=== PATIENT | female | born 1985 | race Caucasian/White ===

== ENCOUNTER 2017-01-18 17:43 | Inpatient (IN) | payer BC, MEDICAID, SELFPAY | END 2017-01-21 12:20 | disposition home or self-care (01) | DRG 766 | PROVIDERS: Admitting Provider Obstetrics & Gynecology; Visit Provider Obstetrics & Gynecology | DX: O34.211 Maternal care for low transverse scar from previous cesarean delivery (principal); N85.8 Other specified noninflammatory disorders of uterus; O75.82 Onset (spontaneous) of labor after 37 completed weeks of gestation but before 39 completed weeks gestation, with delivery by (planned) cesarean section; Z3A.38 38 weeks gestation of pregnancy; Z37.0 Single live birth | CPT/HCPCS: 36415; 59025; 81001; 82800; 85014; 85018; 86850; 86900; 86901; G0238; J2405 ==

== ENCOUNTER → 2018-03-19 10:09 | Outpatient (CLI) | payer BC, SELFPAY ==
[2018-03-19 12:47] LABS: HCG,Quantitative 59 mIU/mL
== END ==
PROVIDERS: Visit Provider Obstetrics & Gynecology
DX: Z34.90 Encounter for supervision of normal pregnancy, unspecified, unspecified trimester (principal)
CPT/HCPCS: 36415; 84702; 86850

== ENCOUNTER → 2018-03-22 08:10 | Outpatient (CLI) | payer BC, SELFPAY ==
[2018-03-22 10:19] LABS: HCG,Quantitative 19 mIU/mL
== END ==
PROVIDERS: Visit Provider Obstetrics & Gynecology
DX: Z34.90 Encounter for supervision of normal pregnancy, unspecified, unspecified trimester (principal)
CPT/HCPCS: 36415; 84702

== ENCOUNTER → 2018-03-26 07:44 | Outpatient (CLI) | payer BC, SELFPAY ==
[2018-03-26 12:46] LABS: HCG,Quantitative 2 mIU/mL
== END ==
PROVIDERS: Visit Provider Obstetrics & Gynecology
DX: Z34.90 Encounter for supervision of normal pregnancy, unspecified, unspecified trimester (principal)
CPT/HCPCS: 36415; 84702

== ENCOUNTER → 2018-04-01 09:13 | Outpatient (CLI) | payer BC, SELFPAY ==
[2018-04-01 10:59] LABS: HCG,Quantitative 0 mIU/mL
== END ==
PROVIDERS: Visit Provider Obstetrics & Gynecology
DX: Z34.90 Encounter for supervision of normal pregnancy, unspecified, unspecified trimester (principal)
CPT/HCPCS: 36415; 84702

== ENCOUNTER → 2018-08-28 10:42 | Outpatient (CLI) | payer BC, SELFPAY ==
[2018-08-28 12:14] LABS: Alanine Aminotransferase 51 U/L (12-78); Albumin Level 3.6 gm/dL (3.4-5.0); Alkaline Phosphatase 108 U/L (46-116); Anion Gap 15.4 mEq/L (5-15); Aspartate Amino Transferase 26 U/L (15-37); Bilirubin,Total 0.2 mg/dL (0.2-1.0); Blood Urea Nitrogen 19 mg/dL (7-18); Calcium 9.3 mg/dL (8.5-10.1); Carbon Dioxide 24 mmol/L (21.0-32.0); Chloride 106 mmol/L (98-107); Chol/HDL Ratio 3.5 (1-3.5); Cholesterol 199 mg/dL (140-200); Creatinine,Serum 0.72 mg/dL (0.55-1.02); Estimated Glomerular Filt Rate 94 ml/min (>60); GFR (African American) 114 ML/MIN (>60); Globulin 3.7 gm/dl (1.3-3.2); Glucose 82 mg/dL (74-106); HDL Cholesterol 57 mg/dL (29-89); LDL Cholesterol 122 mg/dL (0-130); Potassium 4.4 mmoL/L (3.5-5.1); Sodium 141 mmol/L (136-145); Total Protein,Serum 7.3 gm/dL (6.4-8.2); Triglycerides 101 mg/dL (30-200); VLDL Cholesterol 20 mg/dL (0-40)
[2018-08-28 12:55] LABS: Hemoglobin A1C 5.2 % (0.0-7.0)
== END ==
PROVIDERS: Visit Provider Nurse Practitioner Family
DX: Z00.00 Encounter for general adult medical examination without abnormal findings (principal); E78.2 Mixed hyperlipidemia
CPT/HCPCS: 36415; 80053; 80061; 83036

== ENCOUNTER → 2019-03-18 09:49 | Outpatient (CLI) | payer BC, SELFPAY ==
[2019-03-18 13:03] LABS: Hemoglobin A1C 5.1 % (0.0-7.0)
[2019-03-18 13:12] LABS: Alanine Aminotransferase 22 U/L (12-78); Albumin Level 3.5 gm/dL (3.4-5.0); Albumin/Globulin Ratio 1.1 (1.1-1.8); Alkaline Phosphatase 132 U/L (46-116); Anion Gap 16.5 mEq/L (5-15); Aspartate Amino Transferase 14 U/L (15-37); Bilirubin,Total 0.3 mg/dL (0.2-1.0); Blood Urea Nitrogen 14 mg/dL (7-18); Calcium 8.8 mg/dL (8.5-10.1); Carbon Dioxide 26 mmol/L (21.0-32.0); Chloride 105 mmol/L (98-107); Chol/HDL Ratio 5.4 (1-3.5); Cholesterol 199 mg/dL (140-200); Creatinine,Serum 0.73 mg/dL (0.55-1.02); Estimated Glomerular Filt Rate 92 ml/min (>60); GFR (African American) 111 ML/MIN (>60); Globulin 3.3 gm/dl (1.3-3.2); Glucose 79 mg/dL (74-106); HDL Cholesterol 37 mg/dL (29-89); LDL Cholesterol 107 mg/dL (0-130); Potassium 4.5 mmoL/L (3.5-5.1); Sodium 143 mmol/L (136-145); Total Protein,Serum 6.8 gm/dL (6.4-8.2); Triglycerides 277 mg/dL (30-200); VLDL Cholesterol 55 mg/dL (0-40)
== END ==
PROVIDERS: PCP Internal Medicine Adolescent Medicine; Visit Provider Nurse Practitioner Family
DX: Z00.00 Encounter for general adult medical examination without abnormal findings (principal); E28.2 Polycystic ovarian syndrome; E78.01 Familial hypercholesterolemia
CPT/HCPCS: 36415; 80053; 80061; 83036

== ENCOUNTER → 2020-03-25 13:04 | Outpatient (CLI) | payer BC, OTHER, SELFPAY ==
[2020-03-25 13:48] LABS: Basophils # 0.1 K/mm3 (0-0.2); Basophils % 0.7 % (0.1-2.0); Eosinophils # 0.1 K/mm3 (0.0-0.4); Eosinophils % 1.3 % (0.1-12.0); Hematocrit 47.3 % (37.0-47.0); Hemoglobin 14.6 g/dL (12.2-16.2); Lymphocytes # 2.5 K/mm3 (0.7-4.5); Lymphocytes % 32.8 % (10-50); Mean Corpuscular Volume 90.3 fl (81-99); Mean Platelet Volume 7.5 fl (7.4-10.4); Monocytes # 0.5 K/mm3 (0.1-1.0); Monocytes % 6.5 % (1.7-9.3); Neutrophils # 4.4 K/mm3 (1.8-7.8); Neutrophils % 58.7 % (37.0-80.0); Platelet Count 282 K/mm3 (142-424); Red Blood Count 5.24 M/mm3 (4.20-5.40); Red Cell Distribution Width 12.9 % (11.5-17.5); White Blood Count 7.5 K/mm3 (4.8-10.8)
[2020-03-25 14:09] LABS: Alanine Aminotransferase 20 U/L (12-78); Albumin Level 4.7 g/dl (3.5-5.0); Albumin/Globulin Ratio 1.6 (1.1-1.8); Alkaline Phosphatase 100 U/L (38-126); Anion Gap 11.2 mEq/L (5-15); Aspartate Amino Transferase 24 U/L (14-36); Bilirubin,Total 0.4 mg/dl (0.2-1.3); Blood Urea Nitrogen 9 mg/dl (7-17); Calcium 9.5 mg/dl (8.4-10.2); Carbon Dioxide 28 mmol/L (22.0-30.0); Chloride 105 mmol/L (98-107); Estimated Glomerular Filt Rate 114 ml/min (>60); GFR (African American) 138 ML/MIN (>60); Glucose 84 mg/dl (74-100); Potassium 4.2 mmoL/L (3.5-5.1); Sodium 140 mmol/L (136-145); Total Protein,Serum 7.7 g/dl (6.3-8.2)
[2020-03-25 14:24] LABS: HCG,Quantitative 153 mIU/ml (0-5.42)
== END ==
PROVIDERS: Visit Provider Nurse Practitioner Family
DX: Z34.90 Encounter for supervision of normal pregnancy, unspecified, unspecified trimester (principal)
CPT/HCPCS: 36415; 80053; 84702; 85025

== ENCOUNTER → 2020-03-30 09:50 | Outpatient (CLI) | payer BC, OTHER, SELFPAY ==
[2020-03-30 11:10] LABS: HCG,Quantitative 227 mIU/ml (0-5.42)
== END ==
PROVIDERS: Visit Provider Nurse Practitioner Family
DX: Z32.01 Encounter for pregnancy test, result positive (principal)
CPT/HCPCS: 36415; 84702

== ENCOUNTER 2020-04-05 09:55 | Emergency (ER) | payer BC, OTHER, SELFPAY ==
[2020-04-05 09:57] VITALS: BP 140/93; PULSE 83; RESP 18; TEMP 36.7; O2SAT 100; BMI 30.4
--- NOTE | 2020-04-05 10:00 | HMH.EDPREG ---
ED Disposition Clinical Impression: Spontaneous Disposition: Home, Self-Care Condition on Discharge: Good Referrals: Gustabo Castillo MD [Primary Care Provider] - 7-14 days Time of Disposition: 11:31 - Critical Care Critical Care Time: No Attestation: On , the high probability of a clinically significant, sudden or life threatening deterioration of the following system(s) required my full and direct attention, intervention and personal management. The time I documented below is in addition to time spent performing reported procedures but includes the following listed in this critical care notation. Medical Decision Making - Medical Records Medical records reviewed: Yes: I reviewed the patient's medical records. - Johnathan Inquiry Pt receiving controlled substance: No Vital Signs: 04/05/20 09:57 04/05/20 10:49 Temperature 98.0 F Temperature Source Oral Pulse Rate [Right Radial] 83 71 Respiratory Rate 18 Blood Pressure [Right Arm] 140/93 H 130/72 Blood Pressure Mean [Right Arm] 108 91 Blood Pressure Source [Right Arm] Automatic Cuff Automatic Cuff Blood Pressure Position [Right Arm] Sitting Sitting 02 Sat by Pulse Oximetry 100 100 Oxygen Delivery Method Room Air Room Air - Lab Data Lab Results 04/05/20 10:05: Urine Color Yellow, Urine Appearance Clear, Urine pH 6.5, Ur Specific [place] 1.025, Urine Protein Trace, Urine Glucose (UA) Negative, Urine Ketones Negative, Urine Blood 3+, Urine Nitrate Negative, Urine Bilirubin Negative, Urine Urobilinogen 1.0, Ur Leukocyte Esterase Negative, Urine RBC 10-20, Urine WBC 3-5, Ur Squamous Epith Cells 3-5 04/05/20 10:05: Urine HCG, Qual Positive Orders (Tests/Meds): ORDERS Category Date Time Status US transvaginal Stat Exams 04/05/20 10:07 Taken HCG,Quantitative Stat Lab 04/05/20 10:19 Received - US Data US Images: Pelvis ED US Reviewed: Yes: I have reviewed the patient's US results Findings Narrative: Thin uterine lining, 4 mm. No evidence of intrauterine . Normal ovaries with good blood flow. Medical Decision Narrative: 35yo F evaluated for inevitable . Urine is clear for any signs of urinary tract infection. Urine test is still positive with quantitative value pending. Patient was sent for ultrasound that revealed no sign of intrauterine with a thin lining. These were also discussed with patient at bedside. Patient has OB follow-up with Dr. Pollock on the . 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 Patient voiced understanding agree with the plan. Patient has no record of being administered RhoGam with her threatened [facility]. Will provide treatment at this time. HPI - General Stated complaint: bleeding, about 7 weeks Time Seen by Provider: 04/05/20 10:00 Mode of Arrival: Ambulatory Source of Information: Patient Limitations: No Limitations - History of Present Illness HPI Narrative: 35yo F presents to the emergency department for follow-up after being told she was having an inevitable spontaneous at [facility] on Sunday. Patient denies any fever, shortness of breath, chest pain. Notes she has had intermittent vaginal bleeding with low back pain. MD Complaint: vaginal bleeding - Related Data Home Medications Medication Instructions Recorded Confirmed metformin 500 mg 24 hr 1,000 mg PO BID 03/13/17 04/05/20 tablet,extended release Allergies Allergy/AdvReac Type Severity Reaction Status Date / Time morphine [MORPHINE] Allergy Mild ITCHING Unverified 03/19/18 09:16 [facility] History - Hepatitis A Screen Attestation statement:: This patient has been screened for Hepatitis A risk factors. Comment: HYPERTENSION IN . PCOS Other Surgeries: Yes: Amputation: No Fractures: No Comment: T&D--2003. PRIMARY C/S--2005. R C/S--2008. LAP. CHOLY--2008.
[2020-04-05 10:07] VITALS: BMI 30.4
--- NOTE | 2020-04-05 10:07 | US_ITS ---
PROCEDURE: US TRANSVAGINAL CLINICAL INDICATION: vaginal bleeding, COMPARISON: US PTV US PELVIS-TRANSVAGINAL ONLY from 06/10/2013 US PRESG US PREG > 14 WEEKS SNGL/GEST from 08/20/2016 FINDINGS: UTERUS: 7.5 x 4.9cmx 6.4cm with a combined endometrial thickness of 5.2mm. Uterine volume 24 cc. LEFT OVARY: [id number] with a volume of 7.9ml. RIGHT OVARY: 3cmx 5vuq3cl with a volume of 7ml. There is no viable intrauterine . Ovarian size and appearance is normal bilaterally. Minimal fluid may be present in the endometrial canal. IMPRESSION: No viable intrauterine identified. Dictated by: Sarah Garcia MD 04/06/2020 13:29 Sarah Garcia MD in [place] 04/06/2020 13:29
[2020-04-05 10:11] LABS: Microscopic, Urine URINE MICROSCOPIC (MICROSCOPIC)
[2020-04-05 10:13] LABS: Appearance,Urine CLEAR (Clear); Bilirubin,Urine Negative (Negative); Blood, Urine 3+ (Negative); Color,Urine YELLOW (Yellow); Glucose,Urine (UA) Negative (Negative); Ketones,Urine Negative (Negative); Leukocyte Esterase,Urine Negative (Negative); Nitrate,Urine Negative (Negative); PH,Urine 6.5 (5.0-8.5); Protein,Urine TRACE (Negative); Specific Gravity, Urine 1.025 (1.005-1.030); Urine Pregnancy, HCG Qual. Positive (Negative)
--- NOTE | 2020-04-05 10:22 | PC.NURSE ---
PT GOING TO US
[2020-04-05 10:49] VITALS: BP 130/72; PULSE 71; O2SAT 100
--- NOTE | 2020-04-05 11:37 | PC.NURSE ---
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 Michelle who is bench precision assembler for OB
[2020-04-05 11:42] LABS: HCG,Quantitative 239 mIU/ml (0-5.42)
--- NOTE | 2020-04-05 11:43 | PC.NURSE ---
LUDIN TOLLIVER speaking with Dr. Michelle
[2020-04-05 12:04] VITALS: BP 134/68; PULSE 54; RESP 17; TEMP 36.7; O2SAT 100
== END 2020-04-05 12:07 | disposition home or self-care (01) ==
PROVIDERS: Emergency Provider Family Medicine; PCP Internal Medicine Adolescent Medicine
DX: O03.9 Complete or unspecified spontaneous abortion without complication (principal); E11.9 Type 2 diabetes mellitus without complications; Z79.84 Long term (current) use of oral hypoglycemic drugs
CPT/HCPCS: 76830; 81001; 81025; 84702; 99283

== ENCOUNTER → 2020-04-20 09:24 | Outpatient (CLI) | payer BC, OTHER, SELFPAY ==
[2020-04-20 11:46] LABS: HCG,Quantitative 92 mIU/ml (0-5.42)
== END ==
PROVIDERS: Visit Provider Obstetrics & Gynecology
DX: O03.9 Complete or unspecified spontaneous abortion without complication (principal)
CPT/HCPCS: 36415; 84702

== ENCOUNTER → 2020-11-19 12:46 | Outpatient (CLI) | payer BC, OTHER, SELFPAY ==
--- NOTE | 2020-11-19 12:50 | US_ITS ---
PROCEDURE: US TRANSVAGINAL CLINICAL INDICATION: DYSPAREUNIA IN FEMALE,PELVIC PAIN COMPARISON: US US TRANSVAGINAL from 04/05/2020 FINDINGS: UTERUS: 9cm x 5cmx 5cm with a combined endometrial thickness of 8mm LEFT OVARY: 0gyk2hqn6.2cm with a volume of 13.6ml. 18 x 13 mm left ovarian follicle RIGHT OVARY: [id number] with a volume of 6.8ml. No cul-de-sac fluid IMPRESSION: Unremarkable pelvic ultrasound Dictated by: Silviano Morse MD 11/19/2020 15:39 Silviano Morse MD in [place] 11/19/2020 15:39
== END ==
PROVIDERS: PCP Internal Medicine Adolescent Medicine; Visit Provider Nurse Practitioner Family
DX: R10.2 Pelvic and perineal pain (principal); N94.10 Unspecified dyspareunia
CPT/HCPCS: 76830

== ENCOUNTER → 2022-06-07 11:48 | Outpatient (CLI) | payer OTHER, SELFPAY ==
[2022-06-08 11:51] LABS: Progesterone 1.2 ng/mL (.)
== END ==
PROVIDERS: PCP Internal Medicine Adolescent Medicine; Visit Provider Obstetrics & Gynecology
DX: Z01.419 Encounter for gynecological examination (general) (routine) without abnormal findings (principal); N96 Recurrent pregnancy loss; E28.2 Polycystic ovarian syndrome; Z31.41 Encounter for fertility testing
CPT/HCPCS: 36415; 84144

== ENCOUNTER → 2022-07-10 08:25 | Outpatient (CLI) | payer OTHER, SELFPAY ==
[2022-07-11 12:23] LABS: Progesterone 10.6 ng/mL (.)
== END ==
PROVIDERS: PCP Internal Medicine Adolescent Medicine; Visit Provider Obstetrics & Gynecology
DX: N96 Recurrent pregnancy loss (principal); Z31.41 Encounter for fertility testing
CPT/HCPCS: 36415; 84144

== ENCOUNTER → 2022-08-24 08:02 | Outpatient (CLI) | payer OTHER, SELFPAY ==
[2022-08-24 09:01] LABS: HCG,Quantitative < 2 mIU/ml (0-5.42)
== END ==
PROVIDERS: PCP Internal Medicine Adolescent Medicine; Visit Provider Obstetrics & Gynecology
DX: N97.0 Female infertility associated with anovulation (principal)
CPT/HCPCS: 36415; 84702

== ENCOUNTER → 2022-10-09 08:14 | Outpatient (CLI) | payer OTHER, SELFPAY ==
[2022-10-09 10:47] LABS: HCG,Quantitative 13840 mIU/ml (0-5.42)
[2022-10-10 09:30] LABS: Progesterone 8.9 ng/mL (.)
== END ==
PROVIDERS: PCP Internal Medicine Adolescent Medicine; Visit Provider Obstetrics & Gynecology
DX: N92.6 Irregular menstruation, unspecified (principal); Z32.00 Encounter for pregnancy test, result unknown
CPT/HCPCS: 36415; 84144; 84702

== ENCOUNTER → 2022-10-13 13:54 | Outpatient (CLI) | payer OTHER, SELFPAY ==
[2022-10-13 14:26] LABS: Basophils % 0.4 % (0.1-2.0); Eosinophils # 0.2 K/mm3 (0.0-0.4); Eosinophils % 1.9 % (0.1-12.0); Hematocrit 42.8 % (37.0-47.0); Hemoglobin 14.3 g/dL (12.2-16.2); Lymphocytes # 2.8 K/mm3 (0.7-4.5); Lymphocytes % 28.1 % (10-50); Mean Corpuscular HGB Conc 33.4 g/dL (31.8-35.4); Mean Corpuscular Hemoglobin 29.7 pg (27.0-31.2); Mean Corpuscular Volume 88.8 fl (81-99); Mean Platelet Volume 7.4 fl (7.4-10.4); Monocytes # 0.6 K/mm3 (0.1-1.0); Monocytes % 5.6 % (1.7-9.3); Neutrophils # 6.4 K/mm3 (1.8-7.8); Neutrophils % 63.9 % (37.0-80.0); Platelet Count 239 K/mm3 (142-424); Red Blood Count 4.82 M/mm3 (4.20-5.40); Red Cell Distribution Width 13.8 % (11.5-17.5)
[2022-10-15 09:12] LABS: Rapid Plasma Reagin Ab Titer Non Reactive (NonRea<1:1)
[2022-10-15 13:25] LABS: HIV Screen 4th Generation wRfx Non Reactive (Non Reactive)
[2022-10-16 21:27] LABS: Neisseria gonorrhoeae, NAA Negative (Negative)
[2022-10-19 11:08] LABS: Hepatitis B Surface Antigen Negative; Hepatitis C Antibody Non Reactive
[2022-10-19 11:09] LABS: Rubella Antibodies, IgG 1.75
== END ==
PROVIDERS: PCP Internal Medicine Adolescent Medicine; Visit Provider Obstetrics & Gynecology
DX: Z34.91 Encounter for supervision of normal pregnancy, unspecified, first trimester (principal); Z3A.01 Less than 8 weeks gestation of pregnancy
CPT/HCPCS: 36415; 85025; 86593; 86703; 86762; 86850; 87086; 87340; 87380; 87491; 87591; G0432

== ENCOUNTER 2022-12-19 14:45 | Emergency (ER) | payer OTHER, SELFPAY ==
[2022-12-19 14:47] VITALS: BP 158/96; PULSE 88; RESP 18; TEMP 36.7; O2SAT 100; BMI 34.5
--- NOTE | 2022-12-19 15:07 | PC.NURSE ---
DR CLARK AT BEDSIDE
[2022-12-19 15:18] VITALS: BP 148/98; PULSE 84; RESP 17; TEMP 36.7; O2SAT 98
--- NOTE | 2022-12-19 15:27 | HMH.EDGENADL ---
Discharge Plan Disposition Patient Disposition: Home, Self-Care Prescriptions Prescriptions: No Action DHA 200 mg capsule 200 mg PO DAILY Qty: 30 6RF metformin 500 mg tablet,ER everardo.retention 24 hr 1,000 mg PO BID pyridoxine (vitamin B6) 25 mg tablet 25 mg PO TID Qty: 90 0RF Unisom (doxylamine) 25 mg tablet 25 mg PO HS PRN (Reason: nausea and vomiting) Qty: 60 2RF aspirin 81 mg capsule 81 mg PO DAILY Referrals Follow up/Referrals: Gustabo Castillo MD [Primary Care Provider] - See instructions Activity Restrictions/Add. Instructions Additional Instructions/Restrictions: Take Tylenol and Benadryl as discussed return with any worsening abdominal pain or musculoskeletal pain as discussed as well. Clinical Impressions Clinical Impression: Fall, Ankle sprain, Contusion of elbow, left, Left shoulder strain, Lumbosacral strain, Second trimester Stand Alone Forms Stand Alone Forms: Work/School Release Discharge ED Provider: Ashley Brand General Adult HPI General Chief complaint: Fall Stated complaint: 16 weeks ,AO12/19,tightness in pelvic area Time Seen by Provider: 12/19/22 15:03 Mode of Arrival: Ambulatory Limitations: No Limitations Description of Symptoms (Recalled from ER Triage Doc. by RN): PT APPROX 16 WEEKS . FALL AT WORK C/O RIGHT ANKLE AND KNEE PAIN. PAIN TO LEFT ELBOW AND BILATERAL GROIN PAIN. DID NOT LAND ON ABDOMEN History of Present Illness HPI narrative: Patient is a 37-year-old female G9, P3 a 5 at 16 weeks gestational age presented after a fall. States she was walking downstairs and fell down 1-2 stairs twisting her right ankle landing onto her left elbow having some left elbow shoulder bilateral hip pain and lower back pain not in the midline. She denies any lower extremity weakness she denies any significant swelling in any of the locations of pain no soft tissue abnormalities or deformities. No abdominal pain no vaginal bleeding loss of fluid contractions etc. Related Data Home Medications Medication Instructions Recorded Confirmed metformin 500 mg 24 hr 1,000 mg PO BID pcos 03/13/17 12/12/22 tablet,extended release aspirin 81 mg capsule 81 mg PO DAILY 12/12/22 12/12/22 Previous Rx's Medication Instructions Recorded docosahexaenoic acid 200 mg 200 mg PO DAILY #30 caps 06/19/22 capsule ( DHA) doxylamine succinate 25 mg tablet 25 mg PO HS PRN nausea and 10/13/22 (Unisom (doxylamine)) vomiting #60 tabs pyridoxine (vitamin B6) 25 mg 25 mg PO TID #90 tabs 10/13/22 tablet Allergies Allergy/AdvReac Type Severity Reaction Status Date / Time morphine [MORPHINE] Allergy Mild ITCHING Verified 12/12/22 08:42 [facility] Disclaimer: The information contained in this section may have been updated after the patient was seen, as this information can be updated by other users. Medical History Hyperlipemia PCOS (polycystic ovarian syndrome) Vitamin D deficiency Surgical History History of loop electrical excision procedure (LEEP) History of placement of ear tubes History of tonsillectomy and adenoidectomy Hx of section x3 Hx of cholecystectomy Family History Other Diabetes Social History Smoking Status: Former smoker tobacco type: cigarettes packs per day: 0 alcohol intake: never counseling provided: none substance use type: denies use current occupational status: employed Travel in the last 8 weeks: None ROS Obtained: Yes All systems reviewed & no additional complaints except as documented Physical Exam General General appearance: alert Respiratory Respiratory exam: Present normal lung sounds bilaterally Cardiovascular Cardiovascular exam: Present regular rate
== END 2022-12-19 15:26 | disposition home or self-care (01) ==
PROVIDERS: Emergency Provider Emergency Medicine; PCP Internal Medicine Adolescent Medicine
DX: O26.892 Other specified pregnancy related conditions, second trimester (principal); S93.401A Sprain of unspecified ligament of right ankle, initial encounter; S50.02XA Contusion of left elbow, initial encounter; S46.912A Strain of unspecified muscle, fascia and tendon at shoulder and upper arm level, left arm, initial encounter; S39.012A Strain of muscle, fascia and tendon of lower back, initial encounter; Z3A.16 16 weeks gestation of pregnancy; W10.8XXA Fall (on) (from) other stairs and steps, initial encounter
CPT/HCPCS: 99284

== ENCOUNTER → 2023-01-10 13:52 | Outpatient (CLI) | payer OTHER, SELFPAY ==
--- NOTE | 2023-01-10 13:52 | US_ITS ---
PROCEDURE: US OB /MATERNAL DETAIL CLINICAL INDICATION: 20 week anatomy scan COMPARISON: No exams were available for comparison FINDINGS: Transabdominal sonographic images of the pelvis were obtained. From her established due date she is 19 weeks 2 days. Single viable intrauterine gestation. Cephalic position. Placenta: Posteriorplacenta grade 1. There is an average amount of fluid. MVP 3.2 cm. The cervix appears satisfactory. Closed and measuring 3.7 cm in length. Complete survey performed and was unremarkable on the submitted images as in PACS. No discrete anomalies identified on survey imaging by technologist. Active fetus. Three-vessel cord with satisfactory umbilical cord insertion. 4- chamber heart noted. Situs, aortic arch, LVOT, RVOT, three-vessel view appear normal. Survey of brain & ventricles Unremarkable. Cerebellum, thalamus, choroid plexus, cisterna magna appear normal. Face and neck survey unremarkable. Profile, nasion, lips and nose appeared normal. Diaphragm and chest views unremarkable. Abdomen: Both kidneys noted and unremarkable. Stomach and bladder noted and satisfactory. Spine: Survey of the spine satisfactory with no anomalies identified nor imaged. Cervical, thoracic, lower spine appear normal. Both arms and legs noted. Amniotic Fluid: Adequate. Measurements: Average ultrasound age 19weeks 2days. Estimated due date by ultrasound age 0406/04/2023. Estimated weight 278g BPD = 19weeks 2days HC = 19weeks AC = 19weeks 1day FL = 19weeks 3days Growth Percentile= 39 Heart Rate = 139bpm Cerebellum = 19weeks 2days HC/AC is 1.19 FL/BPD is 0.69 FL/AC is 0.22 IMPRESSION: 1. Viable fetus in the cephalic presentation with a posterior placenta grade 1. 2. The fluid is within normal limits. MVP 3.2 cm. 3. Anatomical scan appears normal. 4. biometry is consistent with the dates. Dictated by: Kris Michelle MD 01/12/2023 11:10 Kris Michelle MD in [place] 01/12/2023 11:10
== END ==
PROVIDERS: PCP Internal Medicine Adolescent Medicine; Visit Provider Obstetrics & Gynecology
DX: Z34.92 Encounter for supervision of normal pregnancy, unspecified, second trimester (principal); Z3A.20 20 weeks gestation of pregnancy
CPT/HCPCS: 76811

== ENCOUNTER 2023-03-06 11:49 | Outpatient (CLI) | payer OTHER, SELFPAY ==
[2023-03-06 12:08] LABS: Basophils % 0.3 % (0.1-2.0); Eosinophils # 0.1 K/mm3 (0.0-0.4); Eosinophils % 1.4 % (0.1-12.0); Hematocrit 43.4 % (37.0-47.0); Hemoglobin 13.8 g/dL (12.2-16.2); Lymphocytes % 19.6 % (10-50); Mean Corpuscular HGB Conc 31.8 g/dL (31.8-35.4); Mean Corpuscular Hemoglobin 28.2 pg (27.0-31.2); Mean Corpuscular Volume 88.9 fl (81-99); Mean Platelet Volume 7.1 fl (7.4-10.4); Monocytes # 0.5 K/mm3 (0.1-1.0); Monocytes % 5.2 % (1.7-9.3); Neutrophils # 7.3 K/mm3 (1.8-7.8); Neutrophils % 73.5 % (37.0-80.0); Platelet Count 227 K/mm3 (142-424); Red Blood Count 4.88 M/mm3 (4.20-5.40); Red Cell Distribution Width 13.8 % (11.5-17.5); White Blood Count 9.9 K/mm3 (4.8-10.8)
[2023-03-06 12:19] LABS: Glucose,Fasting 80 mg/dl (74-100)
[2023-03-06 13:44] LABS: Glucose 1 Hour 184 mg/dL (74-100)
== END 2023-03-06 23:59 ==
PROVIDERS: PCP Internal Medicine Adolescent Medicine; Visit Provider Obstetrics & Gynecology
DX: Z34.92 Encounter for supervision of normal pregnancy, unspecified, second trimester (principal); Z3A.27 27 weeks gestation of pregnancy
CPT/HCPCS: 36415; 82951; 85025

== ENCOUNTER 2023-03-07 15:42 | Outpatient (CLI) | payer OTHER, SELFPAY ==
[2023-03-07 16:53] VITALS: BMI 35.5
[2023-03-07 16:57] LABS: Microscopic, Urine URINE MICROSCOPIC (MICROSCOPIC)
[2023-03-07 17:02] LABS: Appearance,Urine CLEAR (Clear); Bilirubin,Urine Negative (Negative); Blood, Urine Negative (Negative); Color,Urine YELLOW (Yellow); Glucose,Urine (UA) Negative (Negative); Ketones,Urine 2+ (Negative); Leukocyte Esterase,Urine Negative (Negative); Nitrate,Urine Negative (Negative); Protein,Urine Negative (Negative); Specific Gravity, Urine 1.015 (1.005-1.030); Urobilinogen,Urine 0.2 EU/dl (0.2)
[2023-03-07 17:04] LABS: Basophils # 0.1 K/mm3 (0-0.2); Basophils % 0.6 % (0.1-2.0); Eosinophils # 0.2 K/mm3 (0.0-0.4); Eosinophils % 1.5 % (0.1-12.0); Hematocrit 38.9 % (37.0-47.0); Hemoglobin 13.3 g/dL (12.2-16.2); Lymphocytes # 2.1 K/mm3 (0.7-4.5); Lymphocytes % 21.8 % (10-50); Mean Corpuscular HGB Conc 34.2 g/dL (31.8-35.4); Mean Corpuscular Volume 87.7 fl (81-99); Mean Platelet Volume 8.8 fl (7.4-10.4); Monocytes # 0.7 K/mm3 (0.1-1.0); Monocytes % 6.7 % (1.7-9.3); Neutrophils # 6.8 K/mm3 (1.8-7.8); Neutrophils % 69.5 % (37.0-80.0); Platelet Count 248 K/mm3 (142-424); Red Blood Count 4.43 M/mm3 (4.20-5.40); Red Cell Distribution Width 13.9 % (11.5-17.5); White Blood Count 9.7 K/mm3 (4.8-10.8)
[2023-03-07 17:09] LABS: Alanine Aminotransferase 25 U/L (12-78); Anion Gap 11.1 mEq/L (5-15); Aspartate Amino Transferase 58 U/L (14-36); Blood Urea Nitrogen 8 mg/dl (7-17); Carbon Dioxide 19 mmol/L (22.0-30.0); Chloride 108 mmol/L (98-107); Creatinine Clearance Estimated 251 mL/min (50-200); Estimated Glomerular Filt Rate 180 ml/min (>60); GFR (African American) 217 ML/MIN (>60); Glucose 83 mg/dl (74-100); Potassium 5.1 mmoL/L (3.5-5.1); Sodium 133 mmol/L (136-145); Uric Acid 3.5 mg/dl (2.5-6.2)
[2023-03-07 17:13] LABS: Activated Partial Thrombo Time 26.9 seconds (22.8-30.6); Fibrinogen 530 mg/dL (229.9-363.5); INR 0.95 (0.9-1.1); Prothrombin Time 10.3 seconds (10.1-12.5)
[2023-03-07 17:17] LABS: Amphetamine/Metha Screen,Urine Negative ng/ml (<1000); Benzodiazepines Screen,Urine Negative ng/ml (<200)
[2023-03-07 17:18] LABS: Barbiturates Screen,Urine Negative ng/ml (<200); Cannabinoid Screen,Urine Negative ng/ml (<50)
[2023-03-07 17:19] LABS: Cocaine Screen,Urine Negative ng/ml (<300)
[2023-03-07 17:20] LABS: Methadone Screen,Urine Negative ng/ml (<300); Opiate Screen,Urine Negative ng/ml (<300)
[2023-03-07 17:21] LABS: Phencyclidine Screen,Urine Negative ng/ml (<25)
[2023-03-07 17:23] VITALS: BP 148/98; PULSE 99; RESP 19; TEMP 36.8; O2SAT 98; BMI 35.5
[2023-03-07 17:33] LABS: Bacteria,Urine Trace /lpf
[2023-03-07] MEDS: NIFEdipine XL 30MG TABLET 30 MG PO (17:36)
== END 2023-03-07 18:08 | disposition home or self-care (01) ==
LOC: OBOUT 15:44 → OB 15:44
PROVIDERS: PCP Internal Medicine Adolescent Medicine; Referring Provider Obstetrics & Gynecology; Visit Provider Nurse Practitioner Obstetrics & Gynecology
DX: O26.892 Other specified pregnancy related conditions, second trimester (principal); Z3A.27 27 weeks gestation of pregnancy; R51.9 Headache, unspecified; H53.8 Other visual disturbances; R42 Dizziness and giddiness
CPT/HCPCS: 59025; 80048; 80307; 81001; 84450; 84460; 84550; 85025; 85384; 85610; 85730; G0463

== ENCOUNTER 2023-03-09 09:18 | Outpatient (CLI) | payer OTHER, SELFPAY ==
[2023-03-09 10:10] LABS: Collection Time,Urine 24 hours; Patient Height,Urine 59 inches; Patient Weight,Urine 182 lbs; Total Volume,Urine 1175 mL (600-1600)
[2023-03-09 10:11] LABS: Glucose,Fasting 91 mg/dl (74-100)
[2023-03-09 10:18] LABS: Chloride 108 mmol/L (98-107); Potassium 3.9 mmoL/L (3.5-5.1); Sodium 135 mmol/L (136-145)
[2023-03-09 10:21] LABS: Alanine Aminotransferase 20 U/L (12-78); Albumin Level 3.2 g/dl (3.5-5.0); Albumin/Globulin Ratio 1.2 (1.1-1.8); Alkaline Phosphatase 108 U/L (38-126); Anion Gap 9.9 mEq/L (5-15); Aspartate Amino Transferase 26 U/L (14-36); Bilirubin,Total 0.3 mg/dl (0.2-1.3); Blood Urea Nitrogen 8 mg/dl (7-17); Carbon Dioxide 21 mmol/L (22.0-30.0); Estimated Glomerular Filt Rate 180 ml/min (>60); GFR (African American) 217 ML/MIN (>60); Globulin 2.7 g/dL (1.3-3.2); Total Protein,Serum 5.9 g/dl (6.3-8.2)
[2023-03-09 10:22] LABS: Calcium 8.7 mg/dl (8.4-10.2); Glucose 87 mg/dl (74-100)
[2023-03-09 10:33] LABS: Creatinine 24 Hour,Urine 1105 mg/24hr (630-2500); Creatinine Clearance Urine 187.9 mL/min (25-115); Creatinine,Urine Random 94 mg/dL (Not Estab.); Total Protein 24 Hour,Urine 71 mg/24 hr (40-90)
[2023-03-09 10:43] LABS: Uric Acid 2.9 mg/dl (2.5-6.2)
[2023-03-09 11:07] LABS: Glucose 1 Hour 155 mg/dL (74-100)
[2023-03-09 12:30] LABS: Glucose 2 Hour 132 mg/dL (74-100)
[2023-03-09 13:03] LABS: Glucose 3 Hour 86 mg/dL (74-100)
== END 2023-03-09 23:59 ==
LOC: LAB 09:18
PROVIDERS: PCP Internal Medicine Adolescent Medicine; Visit Provider Obstetrics & Gynecology
DX: Z3A.27 27 weeks gestation of pregnancy; O13.2 Gestational [pregnancy-induced] hypertension without significant proteinuria, second trimester
CPT/HCPCS: 36415; 80053; 82575; 82951; 84155; 84550

== ENCOUNTER 2023-03-12 14:23 | Outpatient (CLI) | payer OTHER, SELFPAY ==
--- NOTE | 2023-03-12 14:46 | US_ITS ---
PROCEDURE: US OB BIOPHYSICAL PROFILE CLINICAL INDICATION: Gest Hypertenton/LGA COMPARISON: US US OB /MATERNAL DETAIL from 01/10/2023 FINDINGS: Transabdominal sonographic images of the uterus were obtained. From her established due date she is 28weeks 0 days. The following parameters are obtained: Viable Fetus in the cephalic presentation with anterior placenta grade 1. Average ultrasound age is 28weeks 1day Estimated weight 1,165g The cervix measures 3.5 cm. Measurements: heart Rate = 149bpm BPD = 27weeks 5days HC = 28weeks 2days AC = 28weeks 3days FL = 28weeks 2days HC/AC is 1.1 FL/BPD is 0.77 FL/AC is 0.22 39 percentile Amniotic fluid index: 10.72cm, MVP 4.6 cm Qualitative AFV:2 Breathing movements: 2 Gross Body Movements: 2 Tone: 2 Biophysical profile score: 8 No obvious anomalies evident.Kidneys, profile, nasion, bladder, diaphragm, stomach, four-chamber heart, three-vessel cord appear normal. IMPRESSION: 1. Viable fetus in the cephalic presentation with a posterior placenta grade 1. 2. The fluid is within normal limits with an amniotic fluid index of 10.72 cm, MVP 4.6 cm. 3. Biophysical profile is 8/8 with good breathing movement and movement seen. 4. There has been good interval growth with the fetus currently 39th percentile. Dictated by: Kris Michelle MD 03/12/2023 19:32 Kris Michelle MD in [place] 03/12/2023 19:32
== END 2023-03-12 23:59 ==
LOC: RAD 14:23
PROVIDERS: PCP Internal Medicine Adolescent Medicine; Visit Provider Obstetrics & Gynecology
DX: O13.2 Gestational [pregnancy-induced] hypertension without significant proteinuria, second trimester (principal); O36.62X0 Maternal care for excessive fetal growth, second trimester, not applicable or unspecified
CPT/HCPCS: 76816; 76819

== ENCOUNTER 2023-03-15 14:55 | Outpatient (CLI) | payer OTHER, SELFPAY ==
[2023-03-15 15:13] LABS: Basophils # 0.1 K/mm3 (0-0.2); Basophils % 0.5 % (0.1-2.0); Eosinophils # 0.2 K/mm3 (0.0-0.4); Eosinophils % 1.5 % (0.1-12.0); Hematocrit 33.5 % (37.0-47.0); Lymphocytes # 1.9 K/mm3 (0.7-4.5); Lymphocytes % 18.3 % (10-50); Mean Corpuscular HGB Conc 38.7 g/dL (31.8-35.4); Mean Corpuscular Hemoglobin 33.5 pg (27.0-31.2); Mean Corpuscular Volume 86.6 fl (81-99); Mean Platelet Volume 8.4 fl (7.4-10.4); Monocytes # 0.8 K/mm3 (0.1-1.0); Monocytes % 7.3 % (1.7-9.3); Neutrophils # 7.6 K/mm3 (1.8-7.8); Neutrophils % 72.5 % (37.0-80.0); Platelet Count 191 K/mm3 (142-424); Red Blood Count 3.87 M/mm3 (4.20-5.40); Red Cell Distribution Width 13.9 % (11.5-17.5); White Blood Count 10.5 K/mm3 (4.8-10.8)
[2023-03-15 15:15] LABS: Creatinine,Urine Random 45 mg/dL (Not Estab.)
[2023-03-15 16:22] LABS: Chloride 105 mmol/L (98-107); Sodium 135 mmol/L (136-145)
[2023-03-15 16:23] LABS: Potassium 3.8 mmoL/L (3.5-5.1)
[2023-03-15 16:25] LABS: Alanine Aminotransferase 18 U/L (12-78); Alkaline Phosphatase 122 U/L (38-126); Anion Gap 10.8 mEq/L (5-15); Aspartate Amino Transferase 24 U/L (14-36); Bilirubin,Total 0.3 mg/dl (0.2-1.3); Blood Urea Nitrogen 8 mg/dl (7-17); Carbon Dioxide 23 mmol/L (22.0-30.0); Estimated Glomerular Filt Rate 139 ml/min (>60); GFR (African American) 168 ML/MIN (>60)
[2023-03-15 16:26] LABS: Albumin Level 3.3 g/dl (3.5-5.0); Albumin/Globulin Ratio 1.2 (1.1-1.8); Calcium 8.5 mg/dl (8.4-10.2); Globulin 2.7 g/dL (1.3-3.2); Glucose 78 mg/dl (74-100)
== END 2023-03-15 23:59 ==
LOC: LAB 14:56
PROVIDERS: PCP Internal Medicine Adolescent Medicine; Visit Provider Obstetrics & Gynecology
DX: O13.3 Gestational [pregnancy-induced] hypertension without significant proteinuria, third trimester (principal); Z3A.28 28 weeks gestation of pregnancy
CPT/HCPCS: 36415; 80053; 82570; 84155; 85025

== ENCOUNTER 2023-03-19 12:42 | Outpatient (CLI) | payer OTHER, SELFPAY ==
--- NOTE | 2023-03-19 12:42 | US_ITS ---
PROCEDURE: US OB BIOPHYSICAL PROFILE CLINICAL INDICATION: lga/gestational hypertension COMPARISON: US US OB BIOPHYSICAL PROFILE from 03/12/2023 FINDINGS: Transabdominal sonographic images of the uterus were obtained. From her established due date she is 29weeks 0 days. The following parameters are obtained: Viable Fetus in the cephalic presentation with a posterior placenta grade 1. Average ultrasound age is 29weeks 2days Estimated weight 1,337g Cervix measures 3.4 cm Measurements: heart Rate = 147bpm BPD = 28weeks 6days HC = 29weeks 3days AC = 29weeks 2days FL = 29weeks 1day HC/AC is 1.08 FL/BPD is 0.77 FL/AC is 0.22 41 percentile Amniotic fluid index: 10.44cm, MVP 4.0 cm. Qualitative AFV:2 Breathing movements: 2 Gross Body Movements: 2 Tone: 2 Biophysical profile score: 8 No obvious anomalies evident.Kidneys, four-chamber view, bladder, stomach, profile, nasion, three-vessel cord appear normal. IMPRESSION: 1. Viable fetus in the cephalic presentation with a posterior placenta grade 1. 2. The fluid is within normal limits with an amniotic fluid index of 10.44 cm, MVP 4.0 cm. 3. Biophysical profile is 8/8 with good breathing movements and movement seen. 4. There has been good interval growth with the fetus currently 41st percentile. Dictated by: Kris Michelle MD 03/19/2023 14:35 Kris Michelle MD in [place] 03/19/2023 14:35
== END 2023-03-19 23:59 ==
LOC: RAD 12:42
PROVIDERS: PCP Internal Medicine Adolescent Medicine; Visit Provider Obstetrics & Gynecology
DX: O13.2 Gestational [pregnancy-induced] hypertension without significant proteinuria, second trimester (principal); O36.62X0 Maternal care for excessive fetal growth, second trimester, not applicable or unspecified
CPT/HCPCS: 76816; 76819

== ENCOUNTER 2023-03-26 12:45 | Outpatient (CLI) | payer OTHER, SELFPAY ==
--- NOTE | 2023-03-26 12:45 | US_ITS ---
PROCEDURE: US OB BIOPHYSICAL PROFILE CLINICAL INDICATION: gestational hypertension, and LGA COMPARISON: No exams were available for comparison FINDINGS: Transabdominal sonographic images of the uterus were obtained. From her established due date she is 30weeks 0 days. The following parameters are obtained: Viable Fetus in the cephalic presentation with a posterior placenta grade 1. Average ultrasound age is 30weeks 2days Estimated weight 1,493g Cervix measures 4.5 cm. Measurements: heart Rate = 152bpm BPD = 30weeks 0 days, 37 percentile HC = 30weeks 4days, 27 percentile AC = 30weeks 0 days, 42 percentile FL = 30weeks 1day, 36 percentile HC/AC is 1.08 FL/AC is 0.22 37 percentile Amniotic fluid index: 10.13cm, MVP 4.25 cm. Qualitative AFV:2 Breathing movements: 2 Gross Body Movements: 2 Tone: 2 Biophysical profile score: 8 No obvious anomalies evident.Kidneys, profile, nasion, stomach, bladder, four-chamber heart, three-vessel cord appear normal. IMPRESSION: 1. Viable fetus in the cephalic presentation with a posterior placenta grade 1. 2. The fluid is within normal limits with an amniotic fluid index of 10.13 cm, MVP 4.25 cm. 3. Biophysical profile is 8/8 with good breathing movement and movement seen. 4. There has been good interval growth with the fetus currently 37 percentile. Dictated by: Kris Michelle MD 03/26/2023 14:15 Kris Michelle MD in [place] 03/26/2023 14:15
== END 2023-03-26 23:59 ==
LOC: RAD 12:45
PROVIDERS: PCP Internal Medicine Adolescent Medicine; Visit Provider Obstetrics & Gynecology
DX: O13.3 Gestational [pregnancy-induced] hypertension without significant proteinuria, third trimester (principal); O36.63X0 Maternal care for excessive fetal growth, third trimester, not applicable or unspecified; Z3A.29 29 weeks gestation of pregnancy
CPT/HCPCS: 76816; 76819

== ENCOUNTER 2023-04-02 12:48 | Outpatient (CLI) | payer OTHER, SELFPAY ==
--- NOTE | 2023-04-02 12:48 | US_ITS ---
PROCEDURE: US OB BIOPHYSICAL PROFILE CLINICAL INDICATION: LGA/ GESTATIONAL HYPERTENSION COMPARISON: US US OB BIOPHYSICAL PROFILE from 03/12/2023 US US OB BIOPHYSICAL PROFILE from 03/19/2023 US US OB BIOPHYSICAL PROFILE from 03/26/2023 FINDINGS: Transabdominal sonographic images of the uterus were obtained. From her established due date she is 31weeks 0 days. The following parameters are obtained: Viable Fetus in the cephalic presentation with a posterior placenta grade 1-2. Average ultrasound age is 31weeks 4days Estimated weight 1,732g, 3 lb 13 oz. The cervix measures 3.3 cm. Measurements: heart Rate = 138bpm BPD = 31weeks 0 days, 38 percentile HC = 32weeks 4days, 55 percentile AC = 31weeks 2days, percentile FL = 31weeks 1day, percentile HC/AC is 1.09 FL/BPD is 0.77 FL/AC is 0.22 47 percentile Amniotic fluid index: 11.33cm, MVP 4.1 cm. Qualitative AFV:2 Breathing movements: 2 Gross Body Movements: 2 Tone: 2 Biophysical profile score: 8 No obvious anomalies evident.Kidneys, profile, nasion, diaphragm, bladder, four-chamber heart, three-vessel cord appear normal. IMPRESSION: 1. Viable fetus in the cephalic presentation with a posterior placenta grade 1-2. 2. The fluid is within normal limits with an amniotic fluid index of 11.33 cm, MVP 4.1 cm. 3. Biophysical profile 8/8 with good breathing movement and movement seen. 4. There has been good interval growth with the fetus currently 47th percentile. 5. Limited anatomical scan appears normal. Dictated by: Kris Michelle MD 04/02/2023 14:54 Kris Michelle MD in [place] 04/02/2023 14:54
== END 2023-04-02 23:59 ==
LOC: RAD 12:48
PROVIDERS: PCP Internal Medicine Adolescent Medicine; Visit Provider Obstetrics & Gynecology
DX: O13.3 Gestational [pregnancy-induced] hypertension without significant proteinuria, third trimester (principal); O36.63X0 Maternal care for excessive fetal growth, third trimester, not applicable or unspecified; Z3A.31 31 weeks gestation of pregnancy
CPT/HCPCS: 76816; 76819

== ENCOUNTER 2023-04-03 14:32 | Outpatient (CLI) | payer OTHER, SELFPAY ==
[2023-04-03 14:51] VITALS: BP 128/81; PULSE 103; RESP 16; TEMP 36.8; O2SAT 97; BMI 36.3
== END 2023-04-03 15:37 | disposition home or self-care (01) ==
LOC: OBOUT 14:34 → OB 14:34
PROVIDERS: PCP Internal Medicine Adolescent Medicine; Visit Provider Obstetrics & Gynecology
DX: O26.893 Other specified pregnancy related conditions, third trimester (principal); Z3A.31 31 weeks gestation of pregnancy
CPT/HCPCS: 59025; G0463

== ENCOUNTER 2023-04-05 14:15 | Outpatient (CLI) | payer OTHER, SELFPAY ==
[2023-04-05 14:33] LABS: Basophils % 0.3 % (0.1-2.0); Eosinophils # 0.2 K/mm3 (0.0-0.4); Eosinophils % 2.2 % (0.1-12.0); Hematocrit 37.1 % (37.0-47.0); Hemoglobin 12.5 g/dL (12.2-16.2); Lymphocytes # 1.8 K/mm3 (0.7-4.5); Lymphocytes % 20.1 % (10-50); Mean Corpuscular HGB Conc 33.6 g/dL (31.8-35.4); Mean Corpuscular Volume 86.2 fl (81-99); Mean Platelet Volume 9.3 fl (7.4-10.4); Monocytes # 0.8 K/mm3 (0.1-1.0); Monocytes % 8.6 % (1.7-9.3); Neutrophils % 68.7 % (37.0-80.0); Platelet Count 212 K/mm3 (142-424); Red Blood Count 4.31 M/mm3 (4.20-5.40); Red Cell Distribution Width 14.3 % (11.5-17.5); White Blood Count 8.8 K/mm3 (4.8-10.8)
[2023-04-05 15:57] LABS: Alanine Aminotransferase 25 U/L (12-78); Albumin Level 3.3 g/dl (3.5-5.0); Albumin/Globulin Ratio 1.3 (1.1-1.8); Alkaline Phosphatase 143 U/L (38-126); Anion Gap 7.9 mEq/L (5-15); Aspartate Amino Transferase 31 U/L (14-36); Bilirubin,Total 0.4 mg/dl (0.2-1.3); Blood Urea Nitrogen 8 mg/dl (7-17); Calcium 8.5 mg/dl (8.4-10.2); Carbon Dioxide 25 mmol/L (22.0-30.0); Chloride 107 mmol/L (98-107); Estimated Glomerular Filt Rate 139 ml/min (>60); GFR (African American) 168 ML/MIN (>60); Globulin 2.6 g/dL (1.3-3.2); Glucose 84 mg/dl (74-100); Potassium 3.9 mmoL/L (3.5-5.1); Sodium 136 mmol/L (136-145); Total Protein,Serum 5.9 g/dl (6.3-8.2); Uric Acid 3.8 mg/dl (2.5-6.2)
[2023-04-05 18:51] LABS: Creatinine,Urine Random 205 mg/dL (Not Estab.)
== END 2023-04-05 23:59 ==
LOC: LAB 14:15
PROVIDERS: PCP Internal Medicine Adolescent Medicine; Visit Provider Obstetrics & Gynecology
DX: O13.3 Gestational [pregnancy-induced] hypertension without significant proteinuria, third trimester (principal); Z3A.32 32 weeks gestation of pregnancy
CPT/HCPCS: 36415; 80053; 82043; 82570; 84550; 85025

== ENCOUNTER 2023-04-09 12:54 | Outpatient (CLI) | payer OTHER, SELFPAY ==
--- NOTE | 2023-04-09 12:54 | US_ITS ---
PROCEDURE: US OB BIOPHYSICAL PROFILE CLINICAL INDICATION: Gest Hypertension/LGA COMPARISON: US US OB BIOPHYSICAL PROFILE from 03/26/2023 US US OB BIOPHYSICAL PROFILE from 04/02/2023 FINDINGS: Transabdominal sonographic images of the uterus were obtained. From her established due date she is 32weeks 0 days. The following parameters are obtained: Viable Fetus in the cephalic presentation with a posterior placenta grade 1-2. Average ultrasound age is 32weeks 3days Estimated weight 1,914g, 4 lb 4 oz. Cervix measures 3.1 cm. Measurements: heart Rate = 149bpm BPD = 32weeks 2days, 49 percentile HC = 32weeks 5days, 29 percentile AC = 32weeks 0 days, 49 percentile FL = 32weeks 2days, 43 percentile HC/AC is 1.06 FL/BPD is 0.77 FL/AC is 0.22 44 percentile Amniotic fluid index: 13.98cm, MVP 4.66 cm Qualitative AFV:2 Breathing movements: 2 Gross Body Movements: 2 Tone: 2 Biophysical profile score: 8 No obvious anomalies evident.Kidneys, bladder, stomach, four-chamber heart, three-vessel cord appear normal. IMPRESSION: 1. Viable fetus in the cephalic presentation with posterior placenta grade 1-2. 2. The fluid is within normal limits with an amniotic fluid index of 13.98 cm, MCV 4.6 6 cm. 3. Biophysical profile is 8/8 with good breathing movement and movement seen. 4. There has been good interval growth with the fetus currently 44th percentile. 5. Limited anatomical scan appears normal. Dictated by: Kris Michelle MD 04/09/2023 15:13 Kris Michelle MD in [place] 04/09/2023 15:13
== END 2023-04-09 23:59 ==
LOC: RAD 12:54
PROVIDERS: PCP Internal Medicine Adolescent Medicine; Visit Provider Obstetrics & Gynecology
DX: O09.293 Supervision of pregnancy with other poor reproductive or obstetric history, third trimester (principal); O13.3 Gestational [pregnancy-induced] hypertension without significant proteinuria, third trimester; O36.63X0 Maternal care for excessive fetal growth, third trimester, not applicable or unspecified; Z3A.32 32 weeks gestation of pregnancy
CPT/HCPCS: 76816; 76819

== ENCOUNTER 2023-04-10 14:52 | Outpatient (CLI) | payer OTHER, SELFPAY ==
--- NOTE | 2023-04-10 | CA_ITS ---
APPROVED REPORT EXAM: Comprehensive 2D, Doppler, and color-flow Echocardiogram Impregnator: Cori Rai CRT Ht: 5 ft 0 in Wt: 187lbs BSA: 1.81 BP: 127/75 mmHg Indications: Abnormal ECG, Shortness of Breath, CAD, Hyperlipidemia, Hypertension/HDD, GESTATIONAL HTN, 29 WEEKS PREG M-Mode Dimensions RVDd 2.32 cm (0.9-2.6) LA Diam 3.00 cm (1.9-4.0) LVDd 5.10 cm (3.5-5.7) LVDs 3.60 cm (3.5-5.7) IVSd 1.10 cm (0.6-1.1) PWd 0.85 cm (0.6-1.1) EF (Teich) 56.10% FS 29.40% EDV (Teich) 123.80 mL TAPSE 1.83 (<1.7) ESV (Teich) 54.40 mL LV Diastology E Decel Time 150 (160-240 msec) E/A Ratio 1.0 MED A' 5.30 cm/s LAT A' 5.30 cm/s Aortic Valve AO Peak GR. 12.80 mmHg Mitral Valve MV E Max Seven. 70.0 (40-130 cm/s) MV A Velocity 71.0 (40-130 cm/s) E/A Ratio 0.99 MV PHT 44.0 ms Pulmonary Valve PV Peak Velocity 107.0 (50-150 cm/s) Tricuspid Valve TR P. Velocity 201.00 cm/s RAP Estimate 10.00 mmHg RVSP 26.20 mmHg Left Ventricle The left ventricle is normal size. The left ventricular systolic function is normal. The left ventricular ejection fraction is within the normal range. There is normal left ventricular wall thickness. There is normal LV segmental wall motion. The left ventricular diastolic function is normal. LVEF is 55%. Right Ventricle The right ventricle is normal size. The right ventricular systolic function is normal. Atria The left atrium size is normal. The right atrium size is normal. There is no Doppler evidence of interatrial shunt. Aortic Valve The aortic valve is normal in structure. There is no aortic valvular stenosis. No aortic regurgitation is present. Mitral Valve The mitral valve is normal in structure. No evidence of mitral valve stenosis. There is no mitral valve regurgitation noted. Tricuspid Valve The tricuspid valve leaflets are thin and pliable. Trace tricuspid regurgitation. There is insufficient TR jet to estimate RVSP. Pulmonic Valve The pulmonary valve is normal in structure. Trace pulmonic regurgitation. Great Vessels The aortic root is normal in size. The ascending aorta is normal in size. IVC is normal in size and collapses >50% with inspiration. Pericardium There is no pericardial effusion. Other Information Study Quality: Adequate Conclusion Normal biventricular systolic function. No significant valvular stenosis or regurgitation. Electronically signed by : Gini Moran MD 04/13/2023 01:56:32
== END 2023-04-10 23:59 ==
PROVIDERS: PCP Internal Medicine Adolescent Medicine; Visit Provider Internal Medicine
DX: R06.02 Shortness of breath (principal); I25.10 Atherosclerotic heart disease of native coronary artery without angina pectoris; I10 Essential (primary) hypertension; E78.5 Hyperlipidemia, unspecified; O26.893 Other specified pregnancy related conditions, third trimester; Z3A.29 29 weeks gestation of pregnancy
CPT/HCPCS: 93306

== ENCOUNTER 2023-04-16 12:52 | Outpatient (CLI) | payer OTHER, SELFPAY ==
--- NOTE | 2023-04-16 12:52 | US_ITS ---
PROCEDURE: US OB BIOPHYSICAL PROFILE CLINICAL INDICATION: lga, gestational hypertension COMPARISON: No exams were available for comparison FINDINGS: Transabdominal sonographic images of the uterus were obtained. From her established due date she is 33weeks 0 days. The following parameters are obtained: Viable Fetus in the cephalic presentation with a posterior placenta grade 1. Average ultrasound age is 33weeks 1day Estimated weight 2,106g, 4 lb 10 oz Cervix measures 3.9 cm. Measurements: heart Rate = 139bpm BPD = 33weeks 1day, 43 percentile HC = 33weeks 3days, 23 percentile AC = 33weeks 1day, 55 percentile FL = 32weeks 6days, 32 percentile HC/AC is 1.03 FL/BPD is 0.77 FL/AC is 0.22 42 percentile Amniotic fluid index: 15.46cm, MVP 4.94 cm. Qualitative AFV:2 Breathing movements: 2 Gross Body Movements: 2 Tone: 2 Biophysical profile score: 8 No obvious anomalies evident.Kidneys, profile, nasion, bladder, stomach, four-chamber heart, three-vessel cord appear normal. IMPRESSION: 1. Viable fetus in the cephalic presentation with a posterior placenta grade 1. 2. The fluid is within normal limits with an amniotic fluid index of 15.46 cm, MVP 4.94 cm. 3. Biophysical profile 09/26 with good breathing movement and movement seen. 4. There has been good interval growth and the fetus is currently 42nd percentile. Dictated by: Kris Michelle MD 04/16/2023 16:29 Kris Michelle MD in [place] 04/16/2023 16:29
== END 2023-04-16 23:59 ==
LOC: RAD 12:52
PROVIDERS: PCP Internal Medicine Adolescent Medicine; Visit Provider Obstetrics & Gynecology
DX: O13.3 Gestational [pregnancy-induced] hypertension without significant proteinuria, third trimester (principal); O36.63X0 Maternal care for excessive fetal growth, third trimester, not applicable or unspecified; Z3A.33 33 weeks gestation of pregnancy
CPT/HCPCS: 76816; 76819

== ENCOUNTER 2023-04-22 16:48 | Emergency (ER) | payer OTHER, SELFPAY ==
--- NOTE | 2023-04-22 16:53 | ED_ITS ---
I was consulted by the SILVIANO, and we discussed the complexity of the problems being addressed. I approved the treatment and management plan for this patient's care in the emergency department, thus performing a substantive portion of the medical decision making. Aric Ledezma MD Patient is a 38-year-old female G9, P4 who presented for evaluation of elevated blood pressure, dizziness, visual changes. Patient had transient substernal chest pain earlier this morning. Low risk chest pain workup conducted given chronic cardiovascular disease and no tachycardia. No current concern for pulmonary embolism. Hematologic labs nonactionable from an emergency room standpoint. Patient has significantly elevated blood pressure in the setting of already on multimodal therapy. The case was discussed with obstetrics on-call Dr. Arita who admitted the patient to their service for continued evaluation and medical management at this time. Discharge Plan Disposition Patient Disposition: Home, Self-Care Condition: Good Prescriptions Prescriptions: No Action DHA 200 mg capsule 200 mg PO DAILY Qty: 30 6RF (DME) Blood Pressure Cuff Misc See Rx Instructions .ROUTE .MEDSUPPLY Qty: 1 0RF Rx Instructions: As directed albuterol sulfate [Ventolin HFA] 90 mcg/actuation HFA aerosol inhaler 2 inh inhalation PRN nifedipine 60 mg tablet extended release 24hr 60 mg PO DAILY Qty: 30 2RF metformin 1,000 mg tablet 1,000 mg PO BID pyridoxine (vitamin B6) 25 mg tablet 25 mg PO TID Qty: 90 0RF Unisom (doxylamine) 25 mg tablet 25 mg PO HS PRN (Reason: nausea and vomiting) Qty: 60 2RF aspirin 81 mg capsule 81 mg PO DAILY labetalol 200 mg tablet 200 mg PO TID cetirizine 10 mg tablet 10 mg PO PRN Referrals Follow up/Referrals: Mattie Elizalde DO [Primary Care Provider] - See instructions Activity Restrictions/Add. Instructions Additional Instructions/Restrictions: Please follow-up with DRYING FRAME OPERATOR today and the labral. Return to ER for any worsening or changing symptoms. Clinical Impressions Clinical Impression: Hypertension affecting in third trimester Discharge ED Provider: Aric Ledezma General Adult HPI <MANUEL Malin - Last Filed: 04/22/23 17:44> General Chief complaint: Shortness of Breath/Dyspnea Stated complaint: SOA,blurry vision and swelling in hands Time Seen by Provider: 04/22/23 16:52 History of Present Illness HPI narrative: Patient is a 33-week G9, P3 AB 5 who presents for swelling scotoma primarily in the right eye and dizziness. Patient has been managed with nifedipine and labetalol for management of her hypertension. Patient has been evaluated for preeclampsia but no formal diagnosis has been made yet. She denies chest pain fever chills hemoptysis hematochezia melena nausea vomit diarrhea. Related Data Home Medications Medication Instructions Recorded Confirmed aspirin 81 mg capsule 81 mg PO DAILY 12/12/22 04/19/23 albuterol sulfate 90 mcg/actuation 2 inh inhalation PRN 03/09/23 04/19/23 aerosol inhaler (Ventolin HFA) metformin 1,000 mg tablet 1,000 mg PO BID 03/29/23 04/19/23 cetirizine 10 mg tablet 10 mg PO PRN 04/19/23 04/19/23 labetalol 200 mg tablet 200 mg PO TID 04/19/23 Previous Rx's Medication Instructions Recorded docosahexaenoic acid 200 mg 200 mg PO DAILY #30 caps 06/19/22 capsule ( DHA) doxylamine succinate 25 mg tablet 25 mg PO HS PRN nausea and 10/13/22 (Unisom (doxylamine)) vomiting #60 tabs pyridoxine (vitamin B6) 25 mg 25 mg PO TID #90 tabs 10/13/22 tablet miscellaneous medical supply #1 ea 03/06/23 (Blood Pressure Cuff) nifedipine 60 mg tablet,extended 60 mg PO DAILY #30 tabs 03/15/23 release 24 hr Allergies Allergy/AdvReac Type Severity Reaction Status Date / Time morphine [MORPHINE] Allergy Mild ITCHING Verified 04/19/23 13:22 [facility] <MANUEL Malin - Last Filed: 04/22/23 17:44> [facility] Disclaimer: The information contained in this section may have been updated after the patient was seen, as this information can be updated by other users. Medical History Abnormal electrocardiogram [ECG] [EKG] Gestational hypertension affecting fourth History of pre-eclampsia in prior , currently Hyperlipemia PCOS (polycystic ovarian syndrome) Vitamin D deficiency Surgical History History of loop electrical excision procedure (LEEP) History of placement of ear tubes History of tonsillectomy and adenoidectomy Hx of section x3 Hx of cholecystectomy Family History Other Diabetes Social History Smoking Status: Never smoker alcohol intake: never counseling provided: none substance use type: denies use current occupational status: unemployed Travel in the last 8 weeks: None <MANUEL Malin - Last Filed: 04/22/23 17:44> ROS Obtained: Yes Systems reviewed as appropriate & no additional complaints except as documented Physical Exam <MANUEL Malin - Last Filed: 04/22/23 17:44> General General appearance: alert and in no apparent distress Head Head exam: atraumatic and normal inspection Eye Eye exam: Present normal appearance, PERRL and EOMI ENT ENT exam: Present normal exam, normal oropharynx and mucous membranes moist Neck Neck exam: Present normal inspection, full ROM and trachea midline; Absent lymphadenopathy Chest Chest inspection: Present normal inspection and symmetric chest wall rise Respiratory Respiratory exam: Present normal lung sounds bilaterally; Absent accessory muscle use Cardiovascular Cardiovascular exam: Present regular rate, normal rhythm, normal heart sounds and other (Bilateral right greater than left +2 dependent edema in the lower extremities) Abdominal Exam Abdominal exam: Present soft, normal bowel sounds and other (Gravid abdomen); Absent tenderness, guarding or rebound Extremities Exam Extremities exam: Present normal inspection and full ROM Neurological Exam Neurological exam: Present alert and oriented X3 Psychiatric Psychiatric exam: Present normal affect and normal mood Skin Skin exam: Present warm, dry and normal color Lymphatic Lymphatic Findings: no adenopathy Medical Decision Making <MANUEL Malin - Last Filed: 04/22/23 17:44> Medical Records Medical records reviewed: Yes I reviewed the patient's medical records. Johnathan Inquiry Pt receiving controlled substance: No Vital Signs: 04/22/23 17:00 04/22/23 17:01 04/22/23 17:52 Temperature 97.8 F 97.8 F Temperature Source Oral Pulse Rate 89 85 Pulse Rate [Left] 83 Respiratory Rate 18 16 Blood Pressure 119/85 Blood Pressure [Right Arm] 156/97 H Blood Pressure Mean [Right Arm] 116 Blood Pressure Source [Right Arm] Automatic Cuff Blood Pressure Position [Right Arm] Sitting 02 Sat by Pulse Oximetry 98 97 Oxygen Delivery Method Room Air Lab Data Lab results reviewed: Yes I reviewed the patient's lab results. Lab Results 04/22/23 17:00: WBC 9.3, RBC 4.20, Hgb 11.9 L, Hct 36.4 L, MCV 86.8, MCH 28.4, MCHC 32.7, RDW 14.8, Plt Count 218, MPV 8.7, Neut % (Auto) 75.3, Lymph % (Auto) 17.8, Walton % (Auto) 5.1, Eos % (Auto) 1.3, Baso % (Auto) 0.5, Neut # (Auto) 7.0, Lymph # (Auto) 1.7, Walton # (Auto) 0.5, Eos # (Auto) 0.1, Baso # (Auto) 0.0, Sodium 135 L, Potassium 3.8, Chloride 106, Carbon Dioxide 21 L, Anion Gap 11.8, BUN 7, Creatinine 0.50 L, Estimated Creat Clear 218, Estimated GFR 139, Est GFR ( Amer) 168, Glucose 128 H, Calcium 9.2, Magnesium 1.5 L, Total Bilirubin 0.3, AST 35, ALT 27, Alkaline Phosphatase 152 H, Troponin I < 0.01, Total Protein 6.4, Albumin 3.4 L, Globulin 3.0, Albumin/Globulin Ratio 1.1 04/22/23 17:07: Urine Color Yellow, Urine Appearance Clear, Urine pH 6.0, Ur Specific Woody 1.010, Urine Protein Negative, Urine Glucose (UA) Negative, Urine Ketones Trace, Urine Blood Negative, Urine Nitrate Negative, Urine Bilirubin Negative, Urine Urobilinogen 0.2, Ur Leukocyte Esterase Negative, Urine RBC None, Urine WBC None, Ur Squamous Epith Cells Occasional, Urine Bacteria None, Urine Creatinine 65, Urine Microalbumin 7.300, Microalb/Creat Ratio 11.2 04/22/23 17:00 04/22/23 17:00 Orders (Tests/Meds): ORDERS Category Date Time Status CBC w/Auto Diff [Complete Blood Count Auto Diff] Stat Lab 04/22/23 17:00 Completed CMP [Comprehensive Metabolic Panel] Stat Lab 04/22/23 17:00 Completed Magnesium Stat Lab 04/22/23 17:00 Completed Troponin I Stat Lab 04/22/23 17:00 Completed Urinalysis and Microscopic Stat Lab 04/22/23 17:07 Completed Urine Microalbumin/Creat Ratio Stat Lab 04/22/23 17:07 Completed HEART Score HEART Score: 0 Medical Decision Narrative: In summary patient is a 38-year-old female who presents to the emergency department for evaluation of dizziness, scotoma, edema, and high blood pressure. Patient is presenting with a initial blood pressure of 156/97 but a normal heart rate afebrile satting at 98% on room air. Physical exam is remarkable for slight dependent edema but no evidence of tenderness to palpation bilateral lower extremities no erythema with no palpable or visual vascular compromise. Differential diagnosis includes PE, DVT, preeclampsia. Initial workup will be conducted with hematologic labs urinalysis. Iinitial workup reviewed by me shows normal white count with no shift hemoglobin hematocrit 11.9 and 36.4 r espectively with no shift. Chemistries significant for sodium 135 potassium 3.8 CO2 of 21 BUN of 7 creatinine 0.5 Leukos 128 magnesium 1.5 alk phos of 152 albumin of 3.4 total protein 6.4 urinalysis negative for protein trace ketones the remainder of her urinalysis is bland, and her initial troponin is undetectable.. Discussed with DRYING FRAME OPERATOR on-call patient management. Plan is to discharge the patient and she will be evaluated by DRYING FRAME OPERATOR in [facility]. <Aric Ledezma MD - Last Filed: 04/22/23 19:33> Vital Signs: 04/22/23 17:00 04/22/23 17:01 04/22/23 17:52 Temperature 97.8 F 97.8 F Temperature Source Oral Pulse Rate 89 85 Pulse Rate [Left] 83 Respiratory Rate 18 16 Blood Pressure 119/85 Blood Pressure [Right Arm] 156/97 H Blood Pressure Mean [Right Arm] 116 Blood Pressure Source [Right Arm] Automatic Cuff Blood Pressure Position [Right Arm] Sitting 02 Sat by Pulse Oximetry 98 97 Oxygen Delivery Method Room Air Lab Data Lab Results 04/22/23 17:00: WBC 9.3, RBC 4.20, Hgb 11.9 L, Hct 36.4 L, MCV 86.8, MCH 28.4, MCHC 32.7, RDW 14.8, Plt Count 218, MPV 8.7, Neut % (Auto) 75.3, Lymph % (Auto) 17.8, Walton % (Auto) 5.1, Eos % (Auto) 1.3, Baso % (Auto) 0.5, Neut # (Auto) 7.0, Lymph # (Auto) 1.7, Walton # (Auto) 0.5, Eos # (Auto) 0.1, Baso # (Auto) 0.0, Sodium 135 L, Potassium 3.8, Chloride 106, Carbon Dioxide 21 L, Anion Gap 11.8, BUN 7, Creatinine 0.50 L, Estimated Creat Clear 218, Estimated GFR 139, Est GFR ( Amer) 168, Glucose 128 H, Calcium 9.2, Magnesium 1.5 L, Total Bilirubin 0.3, AST 35, ALT 27, Alkaline Phosphatase 152 H, Troponin I < 0.01, Total Protein 6.4, Albumin 3.4 L, Globulin 3.0, Albumin/Globulin Ratio 1.1 04/22/23 17:07: Urine Color Yellow, Urine Appearance Clear, Urine pH 6.0, Ur Specific Woody 1.010, Urine Protein Negative, Urine Glucose (UA) Negative, Urine Ketones Trace, Urine Blood Negative, Urine Nitrate Negative, Urine Bilirubin Negative, Urine Urobilinogen 0.2, Ur Leukocyte Esterase Negative, Urine RBC None, Urine WBC None, Ur Squamous Epith Cells Occasional, Urine Bacteria None, Urine Creatinine 65, Urine Microalbumin 7.300, Microalb/Creat Ratio 11.2 Orders (Tests/Meds): ORDERS Category Date Time Status CBC w/Auto Diff [Complete Blood Count Auto Diff] Stat Lab 04/22/23 17:00 Completed CMP [Comprehensive Metabolic Panel] Stat Lab 04/22/23 17:00 Completed Magnesium Stat Lab 04/22/23 17:00 Completed Troponin I Stat Lab 04/22/23 17:00 Completed Urinalysis and Microscopic Stat Lab 04/22/23 17:07 Completed Urine Microalbumin/Creat Ratio Stat Lab 04/22/23 17:07 Completed ECG Data Tracing #1: Independently interpreted by me, rate is 78, rhythm is regular, no ST elevation in anatomical contiguous leads, QTc 388 HEART Score History (anamnesis): Slightly suspicious ECG: Normal Age: <45 years Risk factors: No known risk factors Troponin: </= normal limit HEART Score: 0 Medical Decision Narrative: In summary patient is a 38-year-old female who presents to the emergency department for evaluation of dizziness, scotoma, edema, and high blood pressure. Patient is presenting with a initial blood pressure of 156/97 but a normal heart rate afebrile satting at 98% on room air. Physical exam is remarkable for slight dependent edema but no evidence of tenderness to palpation bilateral lower extremities no erythema with no palpable or visual vascular compromise. Differential diagnosis includes ACS, preeclampsia. Initial workup will be conducted with hematologic labs urinalysis. Iinitial workup reviewed by me shows normal white count with no shift hemoglobin hematocrit 11.9 and 36.4 respectively with no shift. Chemistries significant for sodium 135 potassium 3.8 CO2 of 21 BUN of 7 creatinine 0.5 Leukos 128 magnesium 1.5 alk phos of 152 albumin of 3.4 total protein 6.4 urinalysis negative for protein trace ketones the remainder of her urinalysis is bland, and her initial troponin is undetec table.. Discussed with DRYING FRAME OPERATOR on-call patient management. Plan is to discharge the patient and she will be evaluated by DRYING FRAME OPERATOR in [facility]. Critical Care <MANUEL Malin - Last Filed: 04/22/23 17:44> Critical Care Time Critical Care Time: No
--- NOTE | 2023-04-22 16:55 | ECG_ITS ---
APPROVED REPORT Exam: Resting ECG HR:78 bpm ECG Measurements Heart Rate 78 AXES SD 109 P 42 QRSd 81 QRS 82 QT 355 T 34 QTc 388 Conclusion SINUS RHYTHM WITH SHORT SD INTERVAL BORDERLINE ECG UNCONFIRMED REPORT Electronically signed by : CHINA CESAR, 04/22/2023 23:10:06
[2023-04-22 17:00] VITALS: BP 156/97; PULSE 83; RESP 18; TEMP 36.6; O2SAT 98; BMI 37.4
[2023-04-22 17:01] VITALS: PULSE 89; O2SAT 97
--- NOTE | 2023-04-22 17:01 | PC.NURSE ---
Dr. Ledezma at [facility] for pt eval
--- NOTE | 2023-04-22 17:09 | PC.NURSE ---
Dr. Ledezma speaking with Dr. Gates
[2023-04-22 17:13] LABS: Microscopic, Urine URINE MICROSCOPIC (MICROSCOPIC)
[2023-04-22 17:15] LABS: Basophils % 0.5 % (0.1-2.0); Eosinophils # 0.1 K/mm3 (0.0-0.4); Eosinophils % 1.3 % (0.1-12.0); Hematocrit 36.4 % (37.0-47.0); Hemoglobin 11.9 g/dL (12.2-16.2); Lymphocytes # 1.7 K/mm3 (0.7-4.5); Lymphocytes % 17.8 % (10-50); Mean Corpuscular HGB Conc 32.7 g/dL (31.8-35.4); Mean Corpuscular Hemoglobin 28.4 pg (27.0-31.2); Mean Corpuscular Volume 86.8 fl (81-99); Mean Platelet Volume 8.7 fl (7.4-10.4); Monocytes # 0.5 K/mm3 (0.1-1.0); Monocytes % 5.1 % (1.7-9.3); Neutrophils % 75.3 % (37.0-80.0); Platelet Count 218 K/mm3 (142-424); Red Cell Distribution Width 14.8 % (11.5-17.5); White Blood Count 9.3 K/mm3 (4.8-10.8)
[2023-04-22 17:17] LABS: Appearance,Urine CLEAR (Clear); Bilirubin,Urine Negative (Negative); Blood, Urine Negative (Negative); Color,Urine YELLOW (Yellow); Glucose,Urine (UA) Negative (Negative); Ketones,Urine TRACE (Negative); Leukocyte Esterase,Urine Negative (Negative); Nitrate,Urine Negative (Negative); Protein,Urine Negative (Negative); Urobilinogen,Urine 0.2 EU/dl (0.2)
[2023-04-22 17:21] LABS: Alanine Aminotransferase 27 U/L (12-78); Albumin Level 3.4 g/dl (3.5-5.0); Albumin/Globulin Ratio 1.1 (1.1-1.8); Alkaline Phosphatase 152 U/L (38-126); Anion Gap 11.8 mEq/L (5-15); Aspartate Amino Transferase 35 U/L (14-36); Bilirubin,Total 0.3 mg/dl (0.2-1.3); Blood Urea Nitrogen 7 mg/dl (7-17); Calcium 9.2 mg/dl (8.4-10.2); Carbon Dioxide 21 mmol/L (22.0-30.0); Chloride 106 mmol/L (98-107); Creatinine Clearance Estimated 218 mL/min (50-200); Estimated Glomerular Filt Rate 139 ml/min (>60); GFR (African American) 168 ML/MIN (>60); Glucose 128 mg/dl (74-100); Magnesium 1.5 mg/dl (1.6-2.3); Potassium 3.8 mmoL/L (3.5-5.1); Sodium 135 mmol/L (136-145); Total Protein,Serum 6.4 g/dl (6.3-8.2)
[2023-04-22 17:29] LABS: Squamous Epithelial Cell,Urine Occasional #/hpf (0-5)
[2023-04-22 17:38] LABS: Microalbumin/Creatinine Ratio 11.2
[2023-04-22 17:39] LABS: Creatinine,Urine Random 65 mg/dL (Not Estab.)
[2023-04-22 17:39] LABS: Troponin I < 0.01 ng/ml (0.00-0.034)
--- NOTE | 2023-04-22 17:44 | PC.NURSE ---
Dr. Ledezma spoke to Dr. Aquino. wants us to send the pt to OB after her troponin is negative. pt is being d/c for immediate admission to OB.
[2023-04-22 17:52] VITALS: BP 119/85; PULSE 85; RESP 16; TEMP 36.6
== END 2023-04-22 17:54 | disposition home or self-care (01) ==
PROVIDERS: Obstetrics & Gynecology; Physician Assistant; Emergency Provider Emergency Medicine; PCP Obstetrics & Gynecology
DX: R42 Dizziness and giddiness; Z3A.33 33 weeks gestation of pregnancy; O13.3 Gestational [pregnancy-induced] hypertension without significant proteinuria, third trimester
CPT/HCPCS: 80053; 81001; 82043; 82570; 83735; 84484; 85025; 93005; 99284

== ENCOUNTER 2023-04-22 17:53 | Outpatient (CLI) | payer OTHER, SELFPAY ==
[2023-04-22 18:03] VITALS: BMI 38.5
[2023-04-22 18:11] VITALS: BMI 38.5
[2023-04-22 18:29] LABS: Uric Acid 4.2 mg/dl (2.5-6.2)
[2023-04-22 18:43] LABS: Activated Partial Thrombo Time 27.3 seconds (22.8-30.6); INR 0.95 (0.9-1.1); Prothrombin Time 10.3 seconds (10.1-12.5)
[2023-04-22 19:27] LABS: Fibrinogen 602 mg/dL (229.9-363.5)
== END 2023-04-22 19:35 | disposition home or self-care (01) ==
LOC: OBOUT 17:55 → OB 17:56
PROVIDERS: PCP Internal Medicine Adolescent Medicine; Referring Provider Obstetrics & Gynecology; Visit Provider Obstetrics & Gynecology
DX: O26.893 Other specified pregnancy related conditions, third trimester (principal); Z3A.33 33 weeks gestation of pregnancy
CPT/HCPCS: 59025; 84550; 85384; 85610; 85730; G0463

== ENCOUNTER 2023-04-23 12:42 | Outpatient (CLI) | payer OTHER, SELFPAY ==
--- NOTE | 2023-04-23 12:43 | US_ITS ---
PROCEDURE: US OB BIOPHYSICAL PROFILE CLINICAL INDICATION: growth u/s / gestational hypertension COMPARISON: US US OB BIOPHYSICAL PROFILE from 04/09/2023 US US OB BIOPHYSICAL PROFILE from 04/16/2023 FINDINGS: Transabdominal sonographic images of the uterus were obtained. From her established due date she is 34weeks 0 days. The following parameters are obtained: Viable Fetus in the cephalic presentation with a posterior placenta grade 2. Average ultrasound age is 34weeks 0 days Estimated weight 2,303g, 5 lb 1 oz Cervix measures 3.5 cm. Measurements: heart Rate = 147bpm BPD = 34weeks 0 days, 45 percentile HC = 34weeks 1day, 18 percentile AC = 34weeks 0 days, 54 percentile FL = 33weeks 5days, 31 percentile HC/AC is 1.02 FL/BPD is 0.78 FL/AC is 0.22 40 percentile Amniotic fluid index: 10.78cm, MVP 4.62 cm. Qualitative AFV:2 Breathing movements: 2 Gross Body Movements: 2 Tone: 2 Biophysical profile score: 8 No obvious anomalies evident.Kidneys, stomach, bladder, four-chamber heart, three-vessel cord appear normal. IMPRESSION: 1. Viable fetus in the cephalic presentation with a posterior placenta grade 2. 2. The fluid is within normal limits with an amniotic fluid index of 10.78 cm, MVP 4.62 cm. 3. Biophysical profile 8/8 with good breathing movement and movement seen. 4. There has been good interval growth with the fetus currently 40th percentile. Dictated by: Kris Michelle MD 04/23/2023 14:11 Kris Michelle MD in [facility] 04/23/2023 14:11
== END 2023-04-23 23:59 ==
LOC: RAD 12:43
PROVIDERS: PCP Internal Medicine Adolescent Medicine; Visit Provider Obstetrics & Gynecology
DX: O09.293 Supervision of pregnancy with other poor reproductive or obstetric history, third trimester (principal); O13.3 Gestational [pregnancy-induced] hypertension without significant proteinuria, third trimester; Z3A.35 35 weeks gestation of pregnancy
CPT/HCPCS: 76816; 76819

== ENCOUNTER 2023-04-30 12:47 | Outpatient (CLI) | payer OTHER, SELFPAY ==
--- NOTE | 2023-04-30 12:47 | US_ITS ---
PROCEDURE: US OB BIOPHYSICAL PROFILE CLINICAL INDICATION: gestational hypertension, lga COMPARISON: US US OB BIOPHYSICAL PROFILE from 04/23/2023 FINDINGS: Transabdominal sonographic images of the uterus were obtained. From her established due date she is 35weeks 0 days. The following parameters are obtained: Viable Fetus in the cephalic presentation with a posterior placenta grade 2. Average ultrasound age is 35weeks 1day Estimated weight 2,555g, 5 lb 10 oz. Cervix measures 3.3 cm. Measurements: heart Rate = 153bpm BPD = 35weeks 3days, 66 percentile HC = 35weeks 6days, 36 percentile AC = 35weeks 1day, 60 percentile FL = 34weeks 1day, 21 percentile HC/AC is 1.02 FL/BPD is 0.76 FL/AC is 0.21 45 percentile Amniotic fluid index: 9.22cm, MVP 3.22 cm. Qualitative AFV:2 Breathing movements: 2 Gross Body Movements: 2 Tone: 2 Biophysical profile score: 8 No obvious anomalies evident.Kidneys, diaphragm, bladder, stomach, four-chamber heart, three-vessel cord appear normal. IMPRESSION: 1. Viable fetus in the cephalic presentation with a posterior placenta grade 2. 2. The fluid is within normal limits with an amniotic fluid index of 9.22 cm, MVP 3.22 cm. 3. Biophysical profile 8/8 with good breathing movement and movement seen. 4. There has been good interval growth with the fetus currently 45th percentile. 5. Limited anatomical scan appears normal. Dictated by: Kris Michelle MD 04/30/2023 15:29 Kris Michelle MD in [facility] 04/30/2023 15:29
== END 2023-04-30 23:59 ==
LOC: RAD 12:47
PROVIDERS: PCP Internal Medicine Adolescent Medicine; Visit Provider Obstetrics & Gynecology
DX: O13.3 Gestational [pregnancy-induced] hypertension without significant proteinuria, third trimester (principal); O36.63X0 Maternal care for excessive fetal growth, third trimester, not applicable or unspecified; Z3A.35 35 weeks gestation of pregnancy
CPT/HCPCS: 76816; 76819

== ENCOUNTER 2023-05-03 14:31 | Outpatient (CLI) | payer OTHER, SELFPAY ==
[2023-05-03 14:45] LABS: Basophils # 0.1 K/mm3 (0-0.2); Basophils % 0.5 % (0.1-2.0); Eosinophils # 0.1 K/mm3 (0.0-0.4); Eosinophils % 1.4 % (0.1-12.0); Hematocrit 37.7 % (37.0-47.0); Hemoglobin 11.9 g/dL (12.2-16.2); Lymphocytes # 1.8 K/mm3 (0.7-4.5); Lymphocytes % 18.4 % (10-50); Mean Corpuscular HGB Conc 31.6 g/dL (31.8-35.4); Mean Corpuscular Hemoglobin 27.2 pg (27.0-31.2); Mean Corpuscular Volume 85.9 fl (81-99); Mean Platelet Volume 9.1 fl (7.4-10.4); Monocytes # 0.6 K/mm3 (0.1-1.0); Monocytes % 6.3 % (1.7-9.3); Neutrophils # 7.2 K/mm3 (1.8-7.8); Neutrophils % 73.3 % (37.0-80.0); Platelet Count 220 K/mm3 (142-424); Red Blood Count 4.39 M/mm3 (4.20-5.40); Red Cell Distribution Width 15.2 % (11.5-17.5); White Blood Count 9.8 K/mm3 (4.8-10.8)
[2023-05-03 15:17] LABS: Alanine Aminotransferase 23 U/L (12-78); Albumin Level 3.3 g/dl (3.5-5.0); Albumin/Globulin Ratio 1.2 (1.1-1.8); Alkaline Phosphatase 174 U/L (38-126); Anion Gap 12.3 mEq/L (5-15); Aspartate Amino Transferase 35 U/L (14-36); Bilirubin,Total 0.3 mg/dl (0.2-1.3); Blood Urea Nitrogen 9 mg/dl (7-17); Calcium 8.9 mg/dl (8.4-10.2); Carbon Dioxide 22 mmol/L (22.0-30.0); Chloride 106 mmol/L (98-107); Estimated Glomerular Filt Rate 139 ml/min (>60); GFR (African American) 168 ML/MIN (>60); Globulin 2.7 g/dL (1.3-3.2); Glucose 88 mg/dl (74-100); Potassium 4.3 mmoL/L (3.5-5.1); Sodium 136 mmol/L (136-145); Uric Acid 3.7 mg/dl (2.5-6.2)
== END 2023-05-03 23:59 ==
LOC: LAB 14:31
PROVIDERS: PCP Internal Medicine Adolescent Medicine; Visit Provider Obstetrics & Gynecology
DX: O09.299 Supervision of pregnancy with other poor reproductive or obstetric history, unspecified trimester (principal); O26.893 Other specified pregnancy related conditions, third trimester; O13.9 Gestational [pregnancy-induced] hypertension without significant proteinuria, unspecified trimester; Z3A.35 35 weeks gestation of pregnancy
CPT/HCPCS: 36415; 80053; 84550; 85025; 86403

== ENCOUNTER 2023-05-07 12:41 | Outpatient (CLI) | payer OTHER, SELFPAY ==
--- NOTE | 2023-05-07 12:42 | US_ITS ---
PROCEDURE: US OB BIOPHYSICAL PROFILE CLINICAL INDICATION: gestational hypertension affecting COMPARISON: US US OB BIOPHYSICAL PROFILE from 04/23/2023 US US OB BIOPHYSICAL PROFILE from 04/30/2023 FINDINGS: Transabdominal sonographic images of the uterus were obtained. From her established due date she is 36weeks 0 days. The following parameters are obtained: Viable Fetus in the cephalic presentation with a posterior placenta grade 2. The cervix measures 3.5 cm. Measurements: heart Rate = 144bpm Amniotic fluid index: 11.03cm, MVP 6.05 cm. Qualitative AFV:2 Breathing movements: 2 Gross Body Movements: 2 Tone: 2 Biophysical profile score: 8 No obvious anomalies evident.Kidneys, stomach, three-vessel cord appear normal. IMPRESSION: 1. Viable fetus in the cephalic presentation with a posterior placenta grade 2. 2. Fluid is within normal limits with an amniotic fluid index of 11.03 cm, MVP 6.05 cm. 3. Biophysical profile is 8/8 with good breathing movement and movement seen. 4. Limited anatomical scan appears normal. Dictated by: Kris Michelle MD 05/07/2023 13:57 Kris Michelle MD in [facility] 05/07/2023 13:57
== END 2023-05-07 23:59 ==
LOC: RAD 12:42
PROVIDERS: PCP Internal Medicine Adolescent Medicine; Visit Provider Obstetrics & Gynecology
DX: O13.3 Gestational [pregnancy-induced] hypertension without significant proteinuria, third trimester (principal); Z3A.29 29 weeks gestation of pregnancy; O26.893 Other specified pregnancy related conditions, third trimester
CPT/HCPCS: 76819

== ENCOUNTER 2023-05-10 13:58 | Outpatient (CLI) | payer OTHER, SELFPAY ==
[2023-05-10 14:13] VITALS: BP 132/93; PULSE 90; RESP 20; TEMP 36.8; O2SAT 100; BMI 39.8
[2023-05-10 14:33] LABS: Microscopic, Urine URINE MICROSCOPIC (MICROSCOPIC)
[2023-05-10 14:37] LABS: Basophils % 0.2 % (0.1-2.0); Eosinophils # 0.1 K/mm3 (0.0-0.4); Eosinophils % 1.3 % (0.1-12.0); Hematocrit 36.5 % (37.0-47.0); Hemoglobin 11.8 g/dL (12.2-16.2); Lymphocytes # 1.7 K/mm3 (0.7-4.5); Lymphocytes % 19.8 % (10-50); Mean Corpuscular HGB Conc 32.3 g/dL (31.8-35.4); Mean Corpuscular Hemoglobin 27.5 pg (27.0-31.2); Mean Corpuscular Volume 85.1 fl (81-99); Mean Platelet Volume 7.9 fl (7.4-10.4); Monocytes # 0.6 K/mm3 (0.1-1.0); Monocytes % 7.2 % (1.7-9.3); Neutrophils # 6.2 K/mm3 (1.8-7.8); Neutrophils % 71.5 % (37.0-80.0); Platelet Count 212 K/mm3 (142-424); Red Blood Count 4.29 M/mm3 (4.20-5.40); Red Cell Distribution Width 15.2 % (11.5-17.5); White Blood Count 8.6 K/mm3 (4.8-10.8)
[2023-05-10 14:40] LABS: Appearance,Urine CLEAR (Clear); Bilirubin,Urine Negative (Negative); Blood, Urine Negative (Negative); Color,Urine YELLOW (Yellow); Glucose,Urine (UA) Negative (Negative); Ketones,Urine Negative (Negative); Leukocyte Esterase,Urine Negative (Negative); Nitrate,Urine Negative (Negative); Protein,Urine Negative (Negative); Specific Gravity, Urine <= 1.005 (1.005-1.030); Urobilinogen,Urine 0.2 EU/dl (0.2)
[2023-05-10 14:46] LABS: Chloride 110 mmol/L (98-107); Potassium 4.2 mmoL/L (3.5-5.1); Sodium 135 mmol/L (136-145)
[2023-05-10 14:48] LABS: Blood Urea Nitrogen 8 mg/dl (7-17); Creatinine Clearance Estimated 225 mL/min (50-200); Estimated Glomerular Filt Rate 139 ml/min (>60); GFR (African American) 168 ML/MIN (>60)
[2023-05-10 14:49] LABS: Alanine Aminotransferase 25 U/L (12-78); Albumin Level 3.3 g/dl (3.5-5.0); Albumin/Globulin Ratio 1.1 (1.1-1.8); Alkaline Phosphatase 178 U/L (38-126); Anion Gap 8.2 mEq/L (5-15); Aspartate Amino Transferase 36 U/L (14-36); Bilirubin,Total 0.3 mg/dl (0.2-1.3); Carbon Dioxide 21 mmol/L (22.0-30.0); Globulin 3.1 g/dL (1.3-3.2); Glucose 85 mg/dl (74-100); Total Protein,Serum 6.4 g/dl (6.3-8.2)
[2023-05-10 14:54] LABS: Creatinine,Urine Random 13 mg/dL (Not Estab.)
[2023-05-10 14:55] LABS: Barbiturates Screen,Urine Negative ng/ml (<200)
[2023-05-10 14:56] LABS: Amphetamine/Metha Screen,Urine Negative ng/ml (<1000)
[2023-05-10 14:57] LABS: Methadone Screen,Urine Negative ng/ml (<300)
[2023-05-10 14:58] LABS: Cannabinoid Screen,Urine Negative ng/ml (<50)
[2023-05-10 14:59] LABS: Cocaine Screen,Urine Negative ng/ml (<300); Opiate Screen,Urine Negative ng/ml (<300)
[2023-05-10 15:00] LABS: Phencyclidine Screen,Urine Negative ng/ml (<25)
[2023-05-10 15:08] LABS: Benzodiazepines Screen,Urine Negative ng/ml (<200)
[2023-05-10] MEDS: ACETAMINOPHEN 500MG TAB 1000 MG PO (15:23)
[2023-05-10 15:24] LABS: Uric Acid 4.4 mg/dl (2.5-6.2)
[2023-05-10 15:31] LABS: Squamous Epithelial Cell,Urine Occasional #/hpf (0-5)
[2023-05-11 17:51] LABS: Total Volume,Urine 700 mL (600-1600)
[2023-05-11 18:02] LABS: Total Protein 24 Hour,Urine 49 mg/24 hr (40-90)
== END 2023-05-10 15:54 | disposition home or self-care (01) ==
LOC: OBOUT 14:00 → OB 14:01
PROVIDERS: Obstetrics & Gynecology; PCP Internal Medicine Adolescent Medicine; Visit Provider Obstetrics & Gynecology
DX: O13.3 Gestational [pregnancy-induced] hypertension without significant proteinuria, third trimester (principal); Z3A.36 36 weeks gestation of pregnancy
CPT/HCPCS: 80053; 80307; 81001; 82570; 84155; 84156; 84550; 85025; G0463

== ENCOUNTER 2023-05-11 18:22 | Observation (INO) | payer OTHER, SELFPAY ==
[2023-05-11 17:08] VITALS: BMI 39.8
[2023-05-11 17:16] VITALS: BP 146/89
[2023-05-11 17:29] VITALS: BP 135/89
[2023-05-11 17:43] VITALS: BP 136/78
[2023-05-11 17:44] VITALS: BMI 39.8
[2023-05-11 17:52] LABS: Microscopic, Urine URINE MICROSCOPIC (MICROSCOPIC)
[2023-05-11 17:55] LABS: Appearance,Urine CLEAR (Clear); Bilirubin,Urine Negative (Negative); Blood, Urine Negative (Negative); Color,Urine YELLOW (Yellow); Glucose,Urine (UA) TRACE (Negative); Ketones,Urine TRACE (Negative); Leukocyte Esterase,Urine Negative (Negative); Nitrate,Urine Negative (Negative); Protein,Urine Negative (Negative); Urobilinogen,Urine 0.2 EU/dl (0.2)
[2023-05-11 18:00] VITALS: BP 133/82
[2023-05-11 18:00] LABS: Chloride 107 mmol/L (98-107); Potassium 3.9 mmoL/L (3.5-5.1); Sodium 135 mmol/L (136-145)
[2023-05-11 18:05] LABS: Alanine Aminotransferase 28 U/L (12-78); Anion Gap 9.9 mEq/L (5-15); Aspartate Amino Transferase 44 U/L (14-36); Blood Urea Nitrogen 11 mg/dl (7-17); Calcium 9.1 mg/dl (8.4-10.2); Carbon Dioxide 22 mmol/L (22.0-30.0); Creatinine Clearance Estimated 225 mL/min (50-200); Estimated Glomerular Filt Rate 139 ml/min (>60); GFR (African American) 168 ML/MIN (>60); Glucose 110 mg/dl (74-100)
[2023-05-11 18:06] LABS: Creatinine,Urine Random 72 mg/dL (Not Estab.)
[2023-05-11 18:07] LABS: Basophils % 0.4 % (0.1-2.0); Eosinophils # 0.1 K/mm3 (0.0-0.4); Eosinophils % 1.4 % (0.1-12.0); Hematocrit 34.8 % (37.0-47.0); Hemoglobin 11.3 g/dL (12.2-16.2); Lymphocytes # 1.6 K/mm3 (0.7-4.5); Lymphocytes % 22.3 % (10-50); Mean Corpuscular HGB Conc 32.5 g/dL (31.8-35.4); Mean Corpuscular Hemoglobin 27.4 pg (27.0-31.2); Mean Corpuscular Volume 84.4 fl (81-99); Mean Platelet Volume 8.7 fl (7.4-10.4); Monocytes # 0.5 K/mm3 (0.1-1.0); Monocytes % 6.6 % (1.7-9.3); Neutrophils # 4.9 K/mm3 (1.8-7.8); Neutrophils % 69.3 % (37.0-80.0); Platelet Count 198 K/mm3 (142-424); Red Blood Count 4.12 M/mm3 (4.20-5.40); Red Cell Distribution Width 15.3 % (11.5-17.5)
[2023-05-11 18:08] LABS: Activated Partial Thrombo Time 25.1 seconds (22.8-30.6); Fibrinogen 589 mg/dL (229.9-363.5); INR 0.91 (0.9-1.1); Prothrombin Time 9.9 seconds (10.1-12.5)
[2023-05-11 18:09] LABS: Benzodiazepines Screen,Urine Negative ng/ml (<200)
[2023-05-11 18:10] LABS: Amphetamine/Metha Screen,Urine Negative ng/ml (<1000); Barbiturates Screen,Urine Negative ng/ml (<200)
[2023-05-11 18:11] LABS: Cannabinoid Screen,Urine Negative ng/ml (<50)
[2023-05-11 18:12] LABS: Cocaine Screen,Urine Negative ng/ml (<300); Methadone Screen,Urine Negative ng/ml (<300)
[2023-05-11 18:13] LABS: Opiate Screen,Urine Negative ng/ml (<300); Phencyclidine Screen,Urine Negative ng/ml (<25)
[2023-05-11 18:32] LABS: Uric Acid 4.6 mg/dl (2.5-6.2)
[2023-05-11] MEDS: BETAMETHASONE ACET/PHOS 6MG/ML 5ML MDV 12 MG IM (18:48)
[2023-05-11 18:50] VITALS: BP 141/90
[2023-05-11 19:07] LABS: Magnesium 1.6 mg/dl (1.6-2.3)
[2023-05-11 19:56] VITALS: BP 134/71; PULSE 75; RESP 20; TEMP 36.9; O2SAT 98
[2023-05-11] MEDS: LABETALOL 100MG TABLET 300 MG PO (20:32)
--- NOTE | 2023-05-11 21:00 | P.HP_ITS ---
[facility] Disclaimer: The information contained in this section may have been updated after the patient was seen, as this information can be updated by other users. Medical History History of pre-eclampsia in prior , currently Abnormal electrocardiogram [ECG] [EKG] Gestational hypertension affecting fourth Vitamin D deficiency Hyperlipemia PCOS (polycystic ovarian syndrome) Surgical History History of placement of ear tubes Hx of cholecystectomy History of loop electrical excision procedure (LEEP) Hx of section x3 History of tonsillectomy and adenoidectomy Family History Other Diabetes Social History Smoking Status: Never smoker alcohol intake: never counseling provided: none substance use type: denies use current occupational status: unemployed Travel in the last 8 weeks: None Meds Home Medications and Allergies Home Medications Medication Instructions Recorded Confirmed Type docosahexaenoic acid 200 mg 200 mg PO DAILY #30 caps 06/19/22 05/10/23 Rx capsule ( DHA) doxylamine succinate 25 mg tablet 25 mg PO HS PRN nausea and 10/13/22 05/10/23 Rx (Unisom (doxylamine)) vomiting #60 tabs pyridoxine (vitamin B6) 25 mg 25 mg PO TID #90 tabs 10/13/22 05/10/23 Rx tablet aspirin 81 mg capsule 81 mg PO DAILY 12/12/22 05/10/23 History miscellaneous medical supply #1 ea 03/06/23 05/10/23 Rx (Blood Pressure Cuff) albuterol sulfate 90 mcg/actuation 2 inh inhalation PRN 03/09/23 05/10/23 History aerosol inhaler (Ventolin HFA) metformin 1,000 mg tablet 1,000 mg PO BID 03/29/23 05/10/23 History cetirizine 10 mg tablet 10 mg PO PRN 04/19/23 05/10/23 History labetalol 200 mg tablet 300 mg (1.5 x 200 mg) PO TID 30 04/26/23 05/10/23 Rx days #135 tabs nifedipine 60 mg tablet,extended See Rx Instructions .Route 05/06/23 05/10/23 Rx release 24 hr .COMPLEX #60 tabs New Prescriptions to Start Prescriptions: Allergies Allergy/AdvReac Type Severity Reaction Status Date / Time morphine [MORPHINE] Allergy Mild ITCHING Verified 05/10/23 13:31 Exam Data for Last 24 hours Vital signs and Labs for Last 24 Hours: BP 141/90 H 05/11/23 18:50 Laboratory Results - last 24 hr 05/11/23 17:11: Urine Color Yellow, Urine Appearance Clear, Urine pH 6.0, Ur Specific [place] 1.020, Urine Protein Negative, Urine Glucose (UA) Trace, Urine Ketones Trace, Urine Blood Negative, Urine Nitrate Negative, Urine Bilirubin Negative, Urine Urobilinogen 0.2, Ur Leukocyte Esterase Negative, Urine RBC None, Urine WBC None, Ur Squamous Epith Cells 3-5, Urine Bacteria None, Urine Creatinine 72, Urine Total Protein 12.0, Urine Opiates Screen Negative, Urine Methadone Screen Negative, Ur Barbituates Screen Negative, Ur Phencyclidine Scrn Negative, Ur Amphetamines Screen Negative, U Benzodiazepines Scrn Negative, Urine Cocaine Screen Negative, U Marijuana (THC) Screen Negative 05/11/23 17:20: WBC 7.0, RBC 4.12 L, Hgb 11.3 L, Hct 34.8 L, MCV 84.4, MCH 27.4, MCHC 32.5, RDW 15.3, Plt Count 198, MPV 8.7, Neut % (Auto) 69.3, Lymph % (Auto) 22.3, Haakon % (Auto) 6.6, Eos % (Auto) 1.4, Baso % (Auto) 0.4, Neut # (Auto) 4.9, Lymph # (Auto) 1.6, Haakon # (Auto) 0.5, Eos # (Auto) 0.1, Baso # (Auto) 0.0, PT 9.9 L, INR 0.91, APTT 25.1, Fibrinogen 589 H, Sodium 135 L, Potassium 3.9, Chloride 107, Carbon Dioxide 22, Anion Gap 9.9, BUN 11 D, Creatinine 0.50 L, Estimated Creat Clear 225, Estimated GFR 139, Est GFR ( Amer) 168, Glucose 110 H, Uric Acid 4.6, Calcium 9.1, Magnesium 1.6, AST 44 H, ALT 28 05/11/23 17:53: Blood Type A Positive, Antibody Screen Negative I & O for Last 24 hours: Intake & Output 05/08/23 05/09/23 05/10/23 05/11/23 23:59 23:59 23:59 23:59 Weight 204 lb
[2023-05-12 00:31] VITALS: BP 118/58; PULSE 85; RESP 16; O2SAT 98
[2023-05-12 04:16] VITALS: BP 134/85; PULSE 75; RESP 19; TEMP 36.6; O2SAT 100
[2023-05-12] MEDS: FAMOTIDINE 20MG/2ML VIAL 20 MG IV ×2 (04:16→13:07)
[2023-05-12 07:28] LABS: Basophils % 0.2 % (0.1-2.0); Eosinophils % 0.1 % (0.1-12.0); Hematocrit 38.4 % (37.0-47.0); Hemoglobin 11.9 g/dL (12.2-16.2); Lymphocytes # 1.1 K/mm3 (0.7-4.5); Lymphocytes % 12.4 % (10-50); Mean Corpuscular HGB Conc 30.9 g/dL (31.8-35.4); Mean Corpuscular Hemoglobin 26.8 pg (27.0-31.2); Mean Corpuscular Volume 86.7 fl (81-99); Monocytes # 0.3 K/mm3 (0.1-1.0); Monocytes % 3.3 % (1.7-9.3); Neutrophils # 7.5 K/mm3 (1.8-7.8); Platelet Count 225 K/mm3 (142-424); Red Blood Count 4.42 M/mm3 (4.20-5.40); Red Cell Distribution Width 15.5 % (11.5-17.5)
[2023-05-12 07:36] LABS: Alanine Aminotransferase 35 U/L (12-78); Albumin Level 3.6 g/dl (3.5-5.0); Albumin/Globulin Ratio 1.2 (1.1-1.8); Alkaline Phosphatase 170 U/L (38-126); Aspartate Amino Transferase 40 U/L (14-36); Bilirubin,Total 0.5 mg/dl (0.2-1.3); Blood Urea Nitrogen 12 mg/dl (7-17); Carbon Dioxide 21 mmol/L (22.0-30.0); Chloride 107 mmol/L (98-107); Creatinine Clearance Estimated 225 mL/min (50-200); Estimated Glomerular Filt Rate 139 ml/min (>60); GFR (African American) 168 ML/MIN (>60); Globulin 3.1 g/dL (1.3-3.2); Glucose 128 mg/dl (74-100); Potassium 4.2 mmoL/L (3.5-5.1); Total Protein,Serum 6.7 g/dl (6.3-8.2); Uric Acid 4.6 mg/dl (2.5-6.2)
[2023-05-12 07:38] LABS: Anion Gap 10.2 mEq/L (5-15); Sodium 134 mmol/L (136-145)
[2023-05-12 08:35] VITALS: BP 130/74; PULSE 95; RESP 18; TEMP 36.6; O2SAT 99
[2023-05-12] MEDS: NIFEdipine XL 30MG TABLET 60 MG PO (08:37)
[2023-05-12] MEDS: LABETALOL 100MG TABLET 300 MG PO ×2 (08:37→12:48)
[2023-05-12 12:48] VITALS: BP 116/61; PULSE 100; RESP 18; TEMP 36.7; O2SAT 97
--- NOTE | 2023-05-12 13:03 | P.HPDS_ITS ---
General Admission date:: 05/11/23 Discharge date: 05/12/23 *Admission Date: 05/11/23 *Chief complaint: Headache *History of present illness: Ramila Henao is a 38-year-old -0-5-3 who presented to labor and delivery yesterday at 36 weeks and 4 days gestation secondary to a severe headache. DALTON is 06/04/2023 based on last menstrual period confirmed by first trimester ultrasound. On admission her blood pressure was noted to be 154/100. It was repeated approximately 10 minutes later and was 140/90. Diastolic blood pressure remained elevated. The patient reported that she had not taken anything for her headache. She denies any vision changes or right upper quadrant pain. She did endorse nausea and vomiting and just overall fatigue and malaise. On arrival she reported decreased movement, however after hooking up to the NST patient reported that movement had improved. is complicated by previous delivery, obesity, advanced maternal age, and preeclampsia. A positive, antibody negative, hepatitis C negative, hepatitis B negative, HIV negative, RPR negative, and gonorrhea and Chlamydia negative, rubella immune 1 hour GTT: 184 3-hour GTT: 91/155/132/86. Pass GBS negative PFSH PFSH Disclaimer: The information contained in this section may have been updated after the patient was seen, as this information can be updated by other users. Medical History History of pre-eclampsia in prior , currently Abnormal electrocardiogram [ECG] [EKG] Gestational hypertension affecting fourth Vitamin D deficiency Hyperlipemia PCOS (polycystic ovarian syndrome) Surgical History History of placement of ear tubes Hx of cholecystectomy History of loop electrical excision procedure (LEEP) Hx of section x3 History of tonsillectomy and adenoidectomy Family History Other Diabetes Social History (Updated 05/11/23 @ 21:02 by Merna Davis RN) Smoking Status: Never smoker alcohol intake: never counseling provided: none substance use type: denies use current occupational status: unemployed Travel in the last 8 weeks: None do you feel safe at home: Yes victim of physical abuse: No victim of emotional abuse: No victim of sexual abuse: No Review of Systems Review of Systems Review of systems (narrative): Review of Systems Constitutional: Denies fever, chills, and sweats. Endorses headache and overall malaise and fatigue Eyes: Denies vision change/ pain Respiratory: Denies cough and shortness of breath Cardiovascular: Denies chest pain and lightheadedness Gastrointestinal: Denies abdominal pain. Endorses nausea. Denies vomiting. Genitourinary: Denies dysuria and incontinence Musculoskeletal: Denies shoulder pain and back pain Exam Data for Last 24 hours Vital signs and Labs for Last 24 Hours: Temp Pulse Resp BP Pulse Ox O2 Del Method 97.8 F 95 H 18 130/74 99 Room Air 05/12/23 08:35 05/12/23 08:35 05/12/23 08:35 05/12/23 08:35 05/12/23 08:35 05/12/23 08:35 Laboratory Results - last 24 hr 05/11/23 17:11: Urine Color Yellow, Urine Appearance Clear, Urine pH 6.0, Ur Specific [place] 1.020, Urine Protein Negative, Urine Glucose (UA) Trace, Urine Ketones Trace, Urine Blood Negative, Urine Nitrate Negative, Urine Bilirubin Negative, Urine Urobilinogen 0.2, Ur Leukocyte Esterase Negative, Urine RBC None, Urine WBC None, Ur Squamous Epith Cells 3-5, Urine Bacteria None, Urine Creatinine 72, Urine Total Protein 12.0, Urine Opiates Screen Negative, Urine Methadone Screen Negative, Ur Barbituates Screen Negative, Ur Phencyclidine Scrn Negative, Ur Amphetamines Screen Negative, U Benzodiazepines Scrn Negative, Urine Cocaine Screen Negative, U Marijuana (THC) Screen Negative 05/11/23 17:20: WBC 7.0, RBC 4.12 L, Hgb 11.3 L, Hct 34.8 L, MCV 84.4, MCH 27.4, MCHC 32.5, RDW 15.3, Plt Count 198, MPV 8.7, Neut % (Auto) 69.3, Lymph % (Auto) 22.3, Irion % (Auto) 6.6, Eos % (Auto) 1.4, Baso % (Auto) 0.4, Neut # (Auto) 4.9, Lymph # (Auto) 1.6, Irion # (Auto) 0.5, Eos # (Auto) 0.1, Baso # (Auto) 0.0, PT 9.9 L, INR 0.91, APTT 25.1, Fibrinogen 589 H, Sodium 135 L, Potassium 3.9, Chloride 107, Carbon Dioxide 22, Anion Gap 9.9, BUN 11 D, Creatinine 0.50 L, Estimated Creat Clear 225, Estimated GFR 139, Est GFR ( Amer) 168, Glucose 110 H, Uric Acid 4.6, Calcium 9.1, Magnesium 1.6, AST 44 H, ALT 28 05/11/23 17:53: Blood Type A Positive, Antibody Screen Negative 05/12/23 07:07: WBC 9.0 D, RBC 4.42, Hgb 11.9 L, Hct 38.4, MCV 86.7, MCH 26.8 L , MCHC 30.9 L, RDW 15.5, Plt Count 225, MPV 9.0, Neut % (Auto) 84.0 H, Lymph % (Auto) 12.4, Irion % (Auto) 3.3, Eos % (Auto) 0.1, Baso % (Auto) 0.2, Neut # (Auto) 7.5, Lymph # (Auto) 1.1, Irion # (Auto) 0.3, Eos # (Auto) 0.0, Baso # (Auto) 0.0, Sodium 134 L, Potassium 4.2, Chloride 107, Carbon Dioxide 21 L, Anion Gap 10.2, BUN 12, Creatinine 0.50 L, Estimated Creat Clear 225, Estimated GFR 139, Est GFR ( Amer) 168, Glucose 128 H, Uric Acid 4.6, Calcium 9.0, Total Bilirubin 0.5, AST 40 H, ALT 35, Alkaline Phosphatase 170 H, Total Protein 6.7, Albumin 3.6, Globulin 3.1, Albumin/Globulin Ratio 1.2 I & O for Last 24 hours: Intake & Output 05/09/23 05/10/23 05/11/23 05/12/23 23:59 23:59 23:59 23:59 Weight 204 lb Narrative: General: patient is alert oriented in no acute distress and responds appropriate ly to questions. HEENT: NCAT, EOMI, moist mucous membranes, neck supple with full ROM Cardiovascular: RRR +S1/S2, no murmurs or rubs Pulmonary: Clear to auscultation bilaterally, nonlabored breathing, symmetric chest rise Abdominal: Gravid abdomen appropriate for gestation. No guarding, rebound, or tenderness noted. SVE: On admission the patient was so uncomfortable the RN was not able to adequa tely assess the cervix. The patient was admitted, received an epidural and then was checked and noted to be 8cm. Extremities: trace edema, no tenderness or cyanosis noted Skin: Normal turgor, intact, warm. Negative for erythema, pallor, petechia, or lesions Neurologic: Negative for sensory or motor deficit Psychiatric: Normal affect, normal thought process, good judgment and insight, no depression or anxious mood appreciated. *Routine HEENT Exam Head: Present normocephalic and atraumatic Eye: Present EOMI, PERRL and normal accommodation; Absent conjunctival icterus, scleral injection, nystagmus or exophthalmos ENT: Present mucous membranes moist *Routine Respiratory Exam Respiratory: Present CTA bilaterally, normal respiratory effort, able to speak in complete sentences and symmetric chest movement; Absent accessory muscle use, decreased breath sounds, rales, respiratory distress, wheezes, distant breath sounds or diminished air movement *Routine Cardiovascular Exam Cardiovascular: Present RRR, Normal S1 and Normal S2; Absent murmur or gallop *Routine Abdominal Exam Abdominal: Present soft and normoactive bowel sounds; Absent tenderness, distended, rebound or guarding *Routine Rectal Exam Rectal:: deferred *Routine Genitalia Exam Genitalia:: normal female Meds Home Medications and Allergies Home Medications Medication Instructions Recorded Confirmed Type docosahexaenoic acid 200 mg 200 mg PO DAILY #30 caps 06/19/22 05/10/23 Rx capsule ( DHA) doxylamine succinate 25 mg tablet 25 mg PO HS PRN nausea and 10/13/22 05/10/23 Rx (Unisom (doxylamine)) vomiting #60 tabs pyridoxine (vitamin B6) 25 mg 25 mg PO TID #90 tabs 10/13/22 05/10/23 Rx tablet aspirin 81 mg capsule 81 mg PO DAILY 12/12/22 05/10/23 History miscellaneous medical supply #1 ea 03/06/23 05/10/23 Rx (Blood Pressure Cuff) albuterol sulfate 90 mcg/actuation 2 inh inhalation PRN 03/09/23 05/10/23 History aerosol inhaler (Ventolin HFA) metformin 1,000 mg tablet 1,000 mg PO BID 03/29/23 05/10/23 History cetirizine 10 mg tablet 10 mg PO PRN 04/19/23 05/10/23 History labetalol 200 mg tablet 300 mg (1.5 x 200 mg) PO TID 30 04/26/23 05/10/23 Rx days #135 tabs nifedipine 60 mg tablet,extended See Rx Instructions .Route 05/06/23 05/10/23 Rx release 24 hr .COMPLEX #60 tabs New Prescriptions to Start Prescriptions: Allergies Allergy/AdvReac Type Severity Reaction Status Date / Time morphine [MORPHINE] Allergy Mild ITCHING Verified 05/10/23 13:31 Hospital Course Hospital Course Hospital Course: Decision was made to admit the patient for overnight observation. A course of Celestone was given in anticipation of possible late delivery. Her second dose of betamethasone will be given at 1848 PM tonight. -Of note her platelets decreased from 212 on the to 198 on the . Will continue to follow these serially. On day of discharge they were back up to 225. -Her creatinine has remained stable -AST shana from 36 on the to 44 on the . On day of discharge it had decreased to 40. We will continue to follow this closely -ALT has remained stable -On arrival the patient turned in her 24-hour urine however there was only 700 mL of urine total for the whole day her 24-hour urine protein was 49. Previously on 05/10/2023 where we did a urine protein to creatinine ratio at that time her urine protein to creatinine ratio was 1.08. Also complicating the picture her urine protein on dip has remained negative since 04/19/2023. -Patient was instructed to return to labor and delivery tomorrow, Sunday, for a blood pressure check, NST, CBC, CMP, and uric acid. -She is scheduled for BPP on Sunday -She is scheduled for 37-week delivery on Sunday for gestational hypertension and possible preeclampsia. Results Data Completed and Pending Labs on day of discharge: Labs from last 24 hours 05/12/23 05/11/23 05/11/23 07:07 17:53 17:20 WBC 9.0 D 7.0 RBC 4.42 4.12 L Hgb 11.9 L 11.3 L Hct 38.4 34.8 L MCV 86.7 84.4 MCH 26.8 L 27.4 MCHC 30.9 L 32.5 RDW 15.5 15.3 Plt Count 225 198 MPV 9.0 8.7 Neut % (Auto) 84.0 H 69.3 Lymph % (Auto) 12.4 22.3 Irion % (Auto) 3.3 6.6 Eos % (Auto) 0.1 1.4 Baso % (Auto) 0.2 0.4 Neut # (Auto) 7.5 4.9 Lymph # (Auto) 1.1 1.6 Irion # (Auto) 0.3 0.5 Eos # (Auto) 0.0 0.1 Baso # (Auto) 0.0 0.0 PT 9.9 L INR 0.91 APTT 25.1 Fibrinogen 589 H Sodium 134 L 135 L Potassium 4.2 3.9 Chloride 107 107 Carbon Dioxide 21 L 22 Anion Gap 10.2 9.9 BUN 12 11 D Creatinine 0.50 L 0.50 L Estimated Creat Clear 225 225 Estimated GFR 139 139 Est GFR ( Amer) 168 168 Glucose 128 H 110 H Uric Acid 4.6 4.6 Calcium 9.0 9.1 Magnesium 1.6 Total Bilirubin 0.5 AST 40 H 44 H ALT 35 28 Alkaline Phosphatase 170 H Total Protein 6.7 Albumin 3.6 Globulin 3.1 Albumin/Globulin Ratio 1.2 Urine Color Urine Appearance Urine pH Ur Specific Huntington Urine Protein Urine Glucose (UA) Urine Ketones Urine Blood Urine Nitrate Urine Bilirubin Urine Urobilinogen Ur Leukocyte Esterase Urine RBC Urine WBC Ur Squamous Epith Cells Urine Bacteria Urine Creatinine Urine Total Protein Urine Opiates Screen Urine Methadone Screen Ur Barbituates Screen Ur Phencyclidine Scrn Ur Amphetamines Screen U Benzodiazepines Scrn Urine Cocaine Screen U Marijuana (THC) Screen Blood Type A Positive Antibody Screen Negative 05/11/23 17:11 WBC RBC Hgb Hct MCV MCH MCHC RDW Plt Count MPV Neut % (Auto) Lymph % (Auto) Irion % (Auto) Eos % (Auto) Baso % (Auto) Neut # (Auto) Lymph # (Auto) Irion # (Auto) Eos # (Auto) Baso # (Auto) PT INR APTT Fibrinogen Sodium Potassium Chloride Carbon Dioxide Anion Gap BUN Creatinine Estimated Creat Clear Estimated GFR Est GFR ( Amer) Glucose Uric Acid Calcium Magnesium Total Bilirubin AST ALT Alkaline Phosphatase Total Protein Albumin Globulin Albumin/Globulin Ratio Urine Color Yellow Urine Appearance Clear Urine pH 6.0 Ur Specific [place] 1.020 Urine Protein Negative Urine Glucose (UA) Trace Urine Ketones Trace Urine Blood Negative Urine Nitrate Negative Urine Bilirubin Negative Urine Urobilinogen 0.2 Ur Leukocyte Esterase Negative Urine RBC None Urine WBC None Ur Squamous Epith Cells 3-5 Urine Bacteria None Urine Creatinine 72 Urine Total Protein 12.0 Urine Opiates Screen Negative Urine Methadone Screen Negative Ur Barbituates Screen Negative Ur Phencyclidine Scrn Negative Ur Amphetamines Screen Negative U Benzodiazepines Scrn Negative Urine Cocaine Screen Negative U Marijuana (THC) Screen Negative Blood Type Antibody Screen DS: Diagnosis Discharge Diagnosis (1) History of pre-eclampsia in prior , currently : Status: Acute Code(s): O09.299 - Supervision of with other poor reproductive or obstetric history, unspecified trimester (2) Hx of section: Status: Acute Code(s): Z98.891 - History of uterine scar from previous surgery Problem details: x3 (3) Advanced maternal age (AMA) in : Status: Acute Problem details: 36 weeks and 5 days gestation -NST is reactive -Continue following PIH labs -All PIH labs remain reassuring -GBS is negative -All testing has remained reassuring -Continue antihypertensive drugs of nifedipine XR 60 mg once daily and labetalol 300 mg 3 times daily -Received her second dose of betamethasone tonight at 1848 -Follow-up tomorrow for an NST in labor and delivery -Follow-up on Sunday for BPP in radiology -Follow-up on Sunday for repeat delivery Strict return precautions were discussed with the patient and her family member that was in the room at bedside. Discussed returning for contractions, leakage of fluid, decreased movement, headache, vision changes, right upper quadrant pain, elevated blood pressures especially 160/110. Patient voiced understanding. Patient has a blood pressure cuff at home and is very reliable checking her blood pressure multiple times a day. (4) Obesity: Status: Acute Code(s): E66.9 - Obesity, unspecified Discharge Plan Disposition Patient Disposition: Home, Self-Care Discharge Order Discharge Orders: Discharge Order (Routine); Ordered 05/12/23 Ordered By: Mattie Elizalde Follow up Plan Follow up with: Mattie Elizalde DO [Staff Physician] - 05/16/23 Prescriptions/Medication Reconciliation: Continued DHA 200 mg capsule 200 mg PO DAILY Qty: 30 6RF albuterol sulfate [Ventolin HFA] 90 mcg/actuation HFA aerosol inhaler 2 inh inhalation PRN metformin 1,000 mg tablet 1,000 mg PO BID labetalol 200 mg tablet 300 mg PO TID 30 Days Qty: 135 5RF pyridoxine (vitamin B6) 25 mg tablet 25 mg PO TID Qty: 90 0RF Unisom (doxylamine) 25 mg tablet 25 mg PO HS PRN (Reason: nausea and vomiting) Qty: 60 2RF aspirin 81 mg capsule 81 mg PO DAILY cetirizine 10 mg tablet 10 mg PO PRN nifedipine 60 mg tablet extended release 24hr See Rx Instructions .ROUTE .COMPLEX Qty: 60 0RF Dose Instruction: Take 1 tablet by mouth once daily Rx Instructions: Take 1 tablet by mouth once daily No Action (DME) Blood Pressure Cuff Misc See Rx Instructions .ROUTE .MEDSUPPLY Qty: 1 0RF Rx Instructions: As directed Problem Reconciliation Problems Reviewed?: Yes Patient Discharge Instructions ACTIVITY: Continue current activity DIET: regular diet Providers Primary Care Provider: Gustabo Castillo Admit Provider: Mattie Elizalde Attending Provider: Mattie Elizalde
[2023-05-12 16:09] VITALS: BP 128/63; PULSE 85; RESP 17; TEMP 36; O2SAT 100
[2023-05-12] MEDS: BETAMETHASONE ACET/PHOS 6MG/ML 5ML MDV 12 MG IM (18:50)
== END 2023-05-12 18:52 | disposition home or self-care (01) | DRG 833 ==
LOC: OBOUT 18:24 → OB 18:26
PROVIDERS: Admitting Provider Obstetrics & Gynecology; PCP Internal Medicine Adolescent Medicine; Visit Provider Obstetrics & Gynecology
DX: R51.9 Headache, unspecified; O36.8130 Decreased fetal movements, third trimester, not applicable or unspecified; O13.3 Gestational [pregnancy-induced] hypertension without significant proteinuria, third trimester; O99.213 Obesity complicating pregnancy, third trimester; Z3A.36 36 weeks gestation of pregnancy; E66.01 Morbid (severe) obesity due to excess calories
CPT/HCPCS: 36415; 59025; 80048; 80053; 80307; 81001; 82570; 83735; 84155; 84156; 84450; 84460; 84550; 85025; 85384; 85610; 85730; 86850; G0378; G0463

== ENCOUNTER 2023-05-13 09:19 | Outpatient (CLI) | payer OTHER, SELFPAY ==
[2023-05-13 09:40] VITALS: BMI 39.8
[2023-05-13 09:51] VITALS: BP 132/75; PULSE 82; RESP 18; TEMP 36.2; O2SAT 99; BMI 39.8
[2023-05-13 09:58] LABS: Microscopic, Urine URINE MICROSCOPIC (MICROSCOPIC)
[2023-05-13 10:01] LABS: Appearance,Urine SL CLOUDY (Clear); Bilirubin,Urine Negative (Negative); Blood, Urine Negative (Negative); Color,Urine YELLOW (Yellow); Glucose,Urine (UA) Negative (Negative); Ketones,Urine Negative (Negative); Leukocyte Esterase,Urine Negative (Negative); Nitrate,Urine Negative (Negative); Protein,Urine TRACE (Negative); Specific Gravity, Urine >= 1.030 (1.005-1.030); Urobilinogen,Urine 0.2 EU/dl (0.2)
[2023-05-13 10:04] LABS: Basophils % 0.3 % (0.1-2.0); Eosinophils % 0.1 % (0.1-12.0); Hematocrit 32.5 % (37.0-47.0); Hemoglobin 10.6 g/dL (12.2-16.2); Lymphocytes # 1.4 K/mm3 (0.7-4.5); Lymphocytes % 12.6 % (10-50); Mean Corpuscular HGB Conc 32.5 g/dL (31.8-35.4); Mean Corpuscular Volume 85.9 fl (81-99); Mean Platelet Volume 9.7 fl (7.4-10.4); Monocytes # 0.6 K/mm3 (0.1-1.0); Monocytes % 5.5 % (1.7-9.3); Neutrophils # 9.2 K/mm3 (1.8-7.8); Neutrophils % 81.5 % (37.0-80.0); Platelet Count 233 K/mm3 (142-424); Red Blood Count 3.79 M/mm3 (4.20-5.40); Red Cell Distribution Width 15.5 % (11.5-17.5); White Blood Count 11.3 K/mm3 (4.8-10.8)
[2023-05-13 10:07] LABS: Chloride 111 mmol/L (98-107); Potassium 3.8 mmoL/L (3.5-5.1); Sodium 135 mmol/L (136-145)
[2023-05-13 10:09] LABS: Alanine Aminotransferase 36 U/L (12-78); Aspartate Amino Transferase 38 U/L (14-36); Blood Urea Nitrogen 12 mg/dl (7-17); Creatinine Clearance Estimated 225 mL/min (50-200); Estimated Glomerular Filt Rate 139 ml/min (>60); GFR (African American) 168 ML/MIN (>60)
[2023-05-13 10:10] LABS: Albumin Level 3.3 g/dl (3.5-5.0); Albumin/Globulin Ratio 1.2 (1.1-1.8); Alkaline Phosphatase 166 U/L (38-126); Anion Gap 5.8 mEq/L (5-15); Bilirubin,Total 0.2 mg/dl (0.2-1.3); Calcium 8.8 mg/dl (8.4-10.2); Carbon Dioxide 22 mmol/L (22.0-30.0); Globulin 2.8 g/dL (1.3-3.2); Glucose 144 mg/dl (74-100); Total Protein,Serum 6.1 g/dl (6.3-8.2)
[2023-05-13 10:13] LABS: Benzodiazepines Screen,Urine Negative ng/ml (<200)
[2023-05-13 10:14] LABS: Amphetamine/Metha Screen,Urine Negative ng/ml (<1000)
[2023-05-13 10:15] LABS: Barbiturates Screen,Urine Negative ng/ml (<200); Cannabinoid Screen,Urine Negative ng/ml (<50); WBC,Urine Occasional #/hpf (0-3)
[2023-05-13 10:16] LABS: Bacteria,Urine 2+ /lpf; Cocaine Screen,Urine Negative ng/ml (<300); Methadone Screen,Urine Negative ng/ml (<300)
[2023-05-13 10:17] LABS: Opiate Screen,Urine Negative ng/ml (<300)
[2023-05-13 10:18] LABS: Phencyclidine Screen,Urine Negative ng/ml (<25)
[2023-05-13 10:25] LABS: Creatinine,Urine Random 84 mg/dL (Not Estab.)
[2023-05-13 10:32] LABS: Uric Acid 4.7 mg/dl (2.5-6.2)
== END 2023-05-13 10:50 | disposition home or self-care (01) ==
LOC: OBOUT 09:21 → OB 09:22
PROVIDERS: PCP Internal Medicine Adolescent Medicine; Visit Provider Obstetrics & Gynecology
DX: O26.893 Other specified pregnancy related conditions, third trimester (principal)
CPT/HCPCS: 80053; 80307; 81001; 82570; 84156; 84550; 85025; 87086; G0463

== ENCOUNTER 2023-05-14 12:52 | Outpatient (CLI) | payer OTHER, SELFPAY ==
--- NOTE | 2023-05-14 12:53 | US_ITS ---
PROCEDURE: US OB BIOPHYSICAL PROFILE CLINICAL INDICATION: OB BPP/Growth for Gest HTN and LGA COMPARISON: US US OB BIOPHYSICAL PROFILE from 05/07/2023 FINDINGS: Transabdominal sonographic images of the uterus were obtained. From her established due date she is 37weeks 0 days. The following parameters are obtained: Viable Fetus in the cephalic presentation with a posterior placenta grade 2. Average ultrasound age is 36weeks 4days Estimated weight 3,012g, 6 lb 10 oz. The cervix measures 3.2 cm. Measurements: heart Rate = 144bpm BPD = 36weeks 1day, 37 percentile HC = 36weeks 1day, 9 percentile AC = 37weeks 1day, 64 percent FL = 36weeks 6days, 42 percent HC/AC is 0.97 FL/BPD is 0.81 FL/AC is 0.22 48 percentile Amniotic fluid index: 10.73cm, MVP 4.72 cm. Qualitative AFV:2 Breathing movements: 2 Gross Body Movements: 2 Tone: 2 Biophysical profile score: 8 No obvious anomalies evident.Kidneys, bladder, stomach, four-chamber heart, three-vessel cord appear normal. IMPRESSION: 1. Viable fetus in cephalic presentation with a posterior placenta grade 2. 2. The fluid is within normal limits with an amniotic fluid index of 10.73 cm, MVP 4.72 cm. 3. Biophysical profile is 8/8 with good breathing movement and movement seen. 4. There has been good interval growth with the fetus currently 48th percentile. Dictated by: Kris Michelle MD 05/14/2023 16:08 Kris Michelle MD in OV 05/14/2023 16:08
== END 2023-05-14 23:59 ==
LOC: RAD 12:53
PROVIDERS: PCP Internal Medicine Adolescent Medicine; Visit Provider Obstetrics & Gynecology
DX: O16.3 Unspecified maternal hypertension, third trimester (principal); O13.9 Gestational [pregnancy-induced] hypertension without significant proteinuria, unspecified trimester; O36.60X0 Maternal care for excessive fetal growth, unspecified trimester, not applicable or unspecified; Z3A.37 37 weeks gestation of pregnancy
CPT/HCPCS: 76816; 76819

== ENCOUNTER 2023-05-14 13:42 | Outpatient (CLI) | payer OTHER, SELFPAY ==
[2023-05-14 13:59] VITALS: O2SAT 98; BMI 39.8
[2023-05-14 14:11] LABS: Microscopic, Urine URINE MICROSCOPIC (MICROSCOPIC)
[2023-05-14 14:19] LABS: Basophils % 0.4 % (0.1-2.0); Eosinophils # 0.1 K/mm3 (0.0-0.4); Eosinophils % 0.7 % (0.1-12.0); Hematocrit 32.9 % (37.0-47.0); Hemoglobin 10.7 g/dL (12.2-16.2); Lymphocytes # 1.9 K/mm3 (0.7-4.5); Mean Corpuscular HGB Conc 32.5 g/dL (31.8-35.4); Mean Corpuscular Hemoglobin 27.7 pg (27.0-31.2); Mean Corpuscular Volume 85.2 fl (81-99); Mean Platelet Volume 9.2 fl (7.4-10.4); Monocytes # 0.9 K/mm3 (0.1-1.0); Monocytes % 8.9 % (1.7-9.3); Neutrophils # 7.5 K/mm3 (1.8-7.8); Platelet Count 208 K/mm3 (142-424); Red Blood Count 3.86 M/mm3 (4.20-5.40); Red Cell Distribution Width 15.6 % (11.5-17.5); White Blood Count 10.5 K/mm3 (4.8-10.8)
[2023-05-14 14:31] LABS: Appearance,Urine CLEAR (Clear); Bilirubin,Urine Negative (Negative); Blood, Urine Negative (Negative); Color,Urine YELLOW (Yellow); Glucose,Urine (UA) Negative (Negative); Ketones,Urine Negative (Negative); Leukocyte Esterase,Urine Negative (Negative); Nitrate,Urine Negative (Negative); Protein,Urine Negative (Negative); Specific Gravity, Urine 1.015 (1.005-1.030); Urobilinogen,Urine 0.2 EU/dl (0.2)
[2023-05-14 14:33] LABS: Chloride 112 mmol/L (98-107); Potassium 3.5 mmoL/L (3.5-5.1); Sodium 136 mmol/L (136-145)
[2023-05-14 14:36] LABS: Alanine Aminotransferase 28 U/L (12-78); Albumin Level 2.9 g/dl (3.5-5.0); Albumin/Globulin Ratio 1.1 (1.1-1.8); Alkaline Phosphatase 161 U/L (38-126); Anion Gap 8.5 mEq/L (5-15); Aspartate Amino Transferase 43 U/L (14-36); Bilirubin,Total 0.2 mg/dl (0.2-1.3); Blood Urea Nitrogen 11 mg/dl (7-17); Carbon Dioxide 19 mmol/L (22.0-30.0); Creatinine Clearance Estimated 161 mL/min (50-200); Estimated Glomerular Filt Rate 94 ml/min (>60); GFR (African American) 114 ML/MIN (>60); Globulin 2.7 g/dL (1.3-3.2); Glucose 96 mg/dl (74-100); Total Protein,Serum 5.6 g/dl (6.3-8.2)
[2023-05-14 14:48] LABS: Creatinine,Urine Random 71 mg/dL (Not Estab.)
[2023-05-14 14:52] LABS: Bacteria,Urine 1+ /lpf; WBC,Urine Occasional #/hpf (0-3)
[2023-05-14 14:53] LABS: Uric Acid 5.1 mg/dl (2.5-6.2)
== END 2023-05-14 15:15 | disposition home or self-care (01) ==
LOC: OBOUT 13:43 → OB 13:44
PROVIDERS: Obstetrics & Gynecology; PCP Internal Medicine Adolescent Medicine; Visit Provider Obstetrics & Gynecology
DX: O26.893 Other specified pregnancy related conditions, third trimester (principal)
CPT/HCPCS: 80053; 81001; 82570; 84156; 84550; 85025; G0463

== ENCOUNTER 2023-05-15 08:22 | Outpatient (CLI) | payer OTHER, SELFPAY ==
[2023-05-15 08:29] VITALS: BMI 39.8
[2023-05-15 08:48] VITALS: BP 153/76; PULSE 69; RESP 18; O2SAT 97
[2023-05-15 09:11] LABS: Basophils % 0.6 % (0.1-2.0); Eosinophils # 0.1 K/mm3 (0.0-0.4); Eosinophils % 1.1 % (0.1-12.0); Hematocrit 33.3 % (37.0-47.0); Hemoglobin 10.7 g/dL (12.2-16.2); Lymphocytes # 1.6 K/mm3 (0.7-4.5); Lymphocytes % 20.2 % (10-50); Mean Corpuscular HGB Conc 32.2 g/dL (31.8-35.4); Mean Corpuscular Hemoglobin 27.2 pg (27.0-31.2); Mean Corpuscular Volume 84.7 fl (81-99); Mean Platelet Volume 9.8 fl (7.4-10.4); Monocytes # 0.5 K/mm3 (0.1-1.0); Monocytes % 6.1 % (1.7-9.3); Neutrophils # 5.8 K/mm3 (1.8-7.8); Platelet Count 199 K/mm3 (142-424); Red Blood Count 3.93 M/mm3 (4.20-5.40); Red Cell Distribution Width 15.5 % (11.5-17.5)
[2023-05-15 09:19] LABS: Chloride 109 mmol/L (98-107); Potassium 3.8 mmoL/L (3.5-5.1)
[2023-05-15 09:20] LABS: Sodium 135 mmol/L (136-145)
[2023-05-15 09:21] LABS: Alanine Aminotransferase 37 U/L (12-78); Aspartate Amino Transferase 45 U/L (14-36); Blood Urea Nitrogen 11 mg/dl (7-17); Creatinine Clearance Estimated 225 mL/min (50-200); Estimated Glomerular Filt Rate 139 ml/min (>60); GFR (African American) 168 ML/MIN (>60)
[2023-05-15 09:22] LABS: Albumin Level 2.8 g/dl (3.5-5.0); Albumin/Globulin Ratio 1.1 (1.1-1.8); Alkaline Phosphatase 155 U/L (38-126); Anion Gap 7.8 mEq/L (5-15); Bilirubin,Total 0.4 mg/dl (0.2-1.3); Calcium 8.3 mg/dl (8.4-10.2); Carbon Dioxide 22 mmol/L (22.0-30.0); Globulin 2.6 g/dL (1.3-3.2); Glucose 109 mg/dl (74-100); Total Protein,Serum 5.4 g/dl (6.3-8.2); Uric Acid 4.3 mg/dl (2.5-6.2)
[2023-05-15 09:26] LABS: Creatinine,Urine Random 62 mg/dL (Not Estab.)
[2023-05-15 09:48] VITALS: BP 126/96
== END 2023-05-15 09:52 | disposition home or self-care (01) ==
LOC: OBOUT 08:23 → OB 08:24
PROVIDERS: PCP Internal Medicine Adolescent Medicine; Visit Provider Obstetrics & Gynecology
DX: O26.893 Other specified pregnancy related conditions, third trimester (principal)
CPT/HCPCS: 36415; 80053; 82570; 84156; 84550; 85025; G0463

== ENCOUNTER 2023-05-16 04:45 | Inpatient (IN) | payer OTHER, SELFPAY ==
[2023-05-16] VITALS (7 sets, daily range): BP systolic 104–153; BP diastolic 57–89; PULSE 59–72; RESP 16–18; TEMP 36.6–43; O2SAT 95–99; BMI 39.8
[2023-05-16 05:38] LABS: Microscopic, Urine URINE MICROSCOPIC (MICROSCOPIC)
[2023-05-16 05:42] LABS: Appearance,Urine CLEAR (Clear); Bilirubin,Urine Negative (Negative); Blood, Urine Negative (Negative); Color,Urine YELLOW (Yellow); Glucose,Urine (UA) Negative (Negative); Ketones,Urine Negative (Negative); Leukocyte Esterase,Urine 1+ (Negative); Nitrate,Urine Negative (Negative); Protein,Urine Negative (Negative); Urobilinogen,Urine 0.2 EU/dl (0.2)
[2023-05-16 05:44] LABS: Basophils # 0.1 K/mm3 (0-0.2); Basophils % 0.6 % (0.1-2.0); Eosinophils # 0.1 K/mm3 (0.0-0.4); Eosinophils % 1.2 % (0.1-12.0); Hematocrit 37.2 % (37.0-47.0); Lymphocytes # 2.2 K/mm3 (0.7-4.5); Lymphocytes % 22.6 % (10-50); Mean Corpuscular HGB Conc 31.7 g/dL (31.8-35.4); Mean Corpuscular Hemoglobin 26.7 pg (27.0-31.2); Mean Corpuscular Volume 84.3 fl (81-99); Mean Platelet Volume 9.2 fl (7.4-10.4); Monocytes # 0.7 K/mm3 (0.1-1.0); Monocytes % 6.7 % (1.7-9.3); Neutrophils # 6.7 K/mm3 (1.8-7.8); Neutrophils % 68.9 % (37.0-80.0); Platelet Count 227 K/mm3 (142-424); Red Blood Count 4.41 M/mm3 (4.20-5.40); Red Cell Distribution Width 15.7 % (11.5-17.5); White Blood Count 9.8 K/mm3 (4.8-10.8)
[2023-05-16 05:47] LABS: Chloride 108 mmol/L (98-107); Sodium 134 mmol/L (136-145)
[2023-05-16 05:49] LABS: Blood Urea Nitrogen 13 mg/dl (7-17); Creatinine Clearance Estimated 225 mL/min (50-200); Estimated Glomerular Filt Rate 139 ml/min (>60); GFR (African American) 168 ML/MIN (>60); Hemoglobin 11.8 g/dL (12.2-16.2)
[2023-05-16 05:50] LABS: Alanine Aminotransferase 38 U/L (12-78); Albumin Level 3.2 g/dl (3.5-5.0); Albumin/Globulin Ratio 1.1 (1.1-1.8); Alkaline Phosphatase 179 U/L (38-126); Aspartate Amino Transferase 42 U/L (14-36); Bilirubin,Total 0.4 mg/dl (0.2-1.3); Calcium 9.9 mg/dl (8.4-10.2); Carbon Dioxide 22 mmol/L (22.0-30.0); Glucose 82 mg/dl (74-100); Total Protein,Serum 6.2 g/dl (6.3-8.2)
[2023-05-16 05:53] LABS: Amphetamine/Metha Screen,Urine Negative ng/ml (<1000)
[2023-05-16 05:54] LABS: Bacteria,Urine 1+ /lpf; Barbiturates Screen,Urine Negative ng/ml (<200); Benzodiazepines Screen,Urine Negative ng/ml (<200)
[2023-05-16 05:55] LABS: Cannabinoid Screen,Urine Negative ng/ml (<50)
[2023-05-16 05:56] LABS: Cocaine Screen,Urine Negative ng/ml (<300); Methadone Screen,Urine Negative ng/ml (<300)
[2023-05-16 05:57] LABS: Opiate Screen,Urine Negative ng/ml (<300)
[2023-05-16 05:58] LABS: Phencyclidine Screen,Urine Negative ng/ml (<25)
[2023-05-16] MEDS: LACTATED RINGERS 1000ML 1,000 ML 999 ML IV ×2 (06:01→06:03)
--- NOTE | 2023-05-16 07:26 | HMH.PHAINT1 ---
Pharmacy Intervention Comments: MEDICATION RECONCILIATION COMPLETED ON PATIENT USING EXTERNAL FILL HISTORY FROM PHARMACY. -MAGDY LOPEZ, SAILAJAD
--- NOTE | 2023-05-16 09:33 | SUR.PHASEI ---
0930- detailed report given to jessica kyle. Pt left in stable condition. VSS, dressings CDI, family at bedside.
[2023-05-16] MEDS: LACTATED RINGERS 1000ML 1,000 ML 125 ML IV (09:38)
--- NOTE | 2023-05-16 09:43 | P.HP_ITS ---
History of Present Illness *Admission Date: 05/16/23 *Reason for visit:: Reviewed delivery and bilateral salpingectomy *History of present illness: Ramila Henao is a 38-year-old -0-5-3 who presented to labor and delivery at 37 weeks and 2 days gestation for a scheduled repeat delivery and bilateral salpingectomy. DALTON is 06/04/2023 based on last menstrual period confirmed by first trimester ultrasound. On admission her blood pressure has been well-controlled. She has had testing almost daily for the last week and has all been reassuring. This has been complicated by preeclampsia, advanced maternal age, obesity, and history of delivery. On arrival she denied headaches, vision changes or right upper quadrant pain. Ramila reports that she has good movement, denies contractions, leakage of fluid, or vaginal bleeding. A positive, antibody negative, hepatitis C negative, hepatitis B negative, HIV negative, RPR negative, and gonorrhea and Chlamydia negative, rubella immune 1 hour GTT: 184 3-hour GTT: 91/155/132/86. Pass GBS negative PFSH PFS Disclaimer: The information contained in this section may have been updated after the patient was seen, as this information can be updated by other users. Medical History History of pre-eclampsia in prior , currently Abnormal electrocardiogram [ECG] [EKG] Gestational hypertension affecting fourth Vitamin D deficiency Hyperlipemia PCOS (polycystic ovarian syndrome) Surgical History History of placement of ear tubes Hx of cholecystectomy History of loop electrical excision procedure (LEEP) Hx of section x3 History of tonsillectomy and adenoidectomy Family History Other Diabetes Social History (Updated 05/16/23 @ 06:25 by Merna Davis RN) Smoking Status: Never smoker alcohol intake: never counseling provided: none substance use type: denies use current occupational status: employed Travel in the last 8 weeks: None do you feel safe at home: Yes victim of physical abuse: No victim of emotional abuse: No victim of sexual abuse: No Review of Systems Review of Systems Review of systems (narrative): Review of Systems Constitutional: Denies fever, chills, and sweats Eyes: Denies vision change/ pain Respiratory: Denies cough and shortness of breath Cardiovascular: Denies chest pain and lightheadedness Gastrointestinal: Denies abdominal pain. Denies nausea, vomiting. Genitourinary: Denies dysuria and incontinence Musculoskeletal: Denies shoulder pain and back pain Neurological: Denies change in speech or headaches Meds Home Medications and Allergies Home Medications Medication Instructions Recorded Confirmed Type docosahexaenoic acid 200 mg 200 mg PO DAILY #30 caps 06/19/22 05/16/23 Rx capsule ( DHA) pyridoxine (vitamin B6) 25 mg 25 mg PO TID #90 tabs 10/13/22 05/16/23 Rx tablet aspirin 81 mg capsule 81 mg PO DAILY 12/12/22 05/16/23 History miscellaneous medical supply #1 ea 03/06/23 05/16/23 Rx (Blood Pressure Cuff) metformin 1,000 mg tablet 1,000 mg PO BIDWMEAL 03/29/23 05/16/23 History cetirizine 10 mg tablet 10 mg PO DAILY Allergy Symptoms 04/19/23 05/16/23 History labetalol 200 mg tablet 300 mg (1.5 x 200 mg) PO TID 30 04/26/23 05/16/23 Rx days #135 tabs doxylamine succinate 25 mg tablet 25 mg PO HSP PRN nausea and 05/16/23 05/16/23 History (Unisom (doxylamine)) vomiting nifedipine 60 mg tablet,extended 60 mg PO DAILY 05/16/23 05/16/23 History release 24 hr New Prescriptions to Start Prescriptions: Allergies Allergy/AdvReac Type Severity Reaction Status Date / Time morphine [MORPHINE] Allergy Mild ITCHING Verified 05/10/23 13:31 Exam Data for Last 24 hours Vital signs and Labs for Last 24 Hours: Temp Pulse Resp BP Pulse Ox O2 Del Method 97.8 F 64 16 120/59 L 98 Room Air 05/16/23 09:30 05/16/23 09:30 05/16/23 09:30 05/16/23 09:30 05/16/23 09:30 05/16/23 09:30 Laboratory Results - last 24 hr 05/16/23 05:00: Urine Color Yellow, Urine Appearance Clear, Urine pH 6.0, Ur Specific [place] 1.010, Urine Protein Negative, Urine Glucose (UA) Negative, Urine Ketones Negative, Urine Blood Negative, Urine Nitrate Negative, Urine Bilirubin Negative, Urine Urobilinogen 0.2, Ur Leukocyte Esterase 1+ A, Urine RBC None, Urine WBC 5-10, Ur Squamous Epith Cells 5-10, Urine Bacteria 1+, Urine Opiates Screen Negative, Urine Methadone Screen Negative, Ur Barbituates Screen Negative, Ur Phencyclidine Scrn Negative, Ur Amphetamines Screen Negative, U Benzodiazepines Scrn Negative, Urine Cocaine Screen Negative, U Marijuana (THC) Screen Negative 05/16/23 05:10: WBC 9.8, RBC 4.41, Hgb 11.8 L D, Hct 37.2, MCV 84.3, MCH 26.7 L, MCHC 31.7 L, RDW 15.7, Plt Count 227, MPV 9.2, Neut % (Auto) 68.9, Lymph % (Auto) 22.6, [place] % (Auto) 6.7, Eos % (Auto) 1.2, Baso % (Auto) 0.6, Neut # (Auto) 6.7, Lymph # (Auto) 2.2, [place] # (Auto) 0.7, Eos # (Auto) 0.1, Baso # (Auto) 0.1, Sodium 134 L, Potassium 4.0, Chloride 108 H, Carbon Dioxide 22, Anion Gap 8.0, BUN 13, Creatinine 0.50 L, Estimated Creat Clear 225, Estimated GFR 139, Est GFR ( Amer) 168, Glucose 82 D, Calcium 9.9, Total Bilirubin 0.4, AST 42 H, ALT 38, Alkaline Phosphatase 179 H, Total Protein 6.2 L, Albumin 3.2 L D, Globulin 3.0, Albumin/Globulin Ratio 1.1, Blood Type A Positive, Antibody Screen Negative, Crossmatch (AHG) See Detail I & O for Last 24 hours: Intake & Output 05/13/23 05/14/23 05/15/23 05/16/23 23:59 23:59 23:59 23:59 Weight 204 lb Narrative: General: patient is alert oriented in no acute distress and responds appropriately to questions. HEENT: NCAT, EOMI, moist mucous membranes, neck supple with full ROM Cardiovascular: RRR +S1/S2, no murmurs or rubs Pulmonary: Clear to auscultation bilaterally, nonlabored breathing, symmetric chest rise Abdominal: Gravid abdomen appropriate for gestation. No guarding, rebound, or tenderness noted. Extremities: trace edema, no tenderness or cyanosis noted. Plus 2 out of 4 reflexes noted bilaterally Skin: Normal turgor, intact, warm. Negative for erythema, pallor, petechia, or lesions Neurologic: Negative for sensory or motor deficit Psychiatric: Normal affect, normal thought process, good judgment and insight, no depression or anxious mood appreciated. Constitutional Constitutional: no acute distress *Routine HEENT Exam Head: Present normocephalic and atraumatic Eye: Present EOMI, PERRL and normal accommodation; Absent conjunctival icterus, scleral injection, nystagmus or exophthalmos ENT: Present mucous membranes moist *Routine Neck Exam Neck: Present supple; Absent lymphadenopathy *Routine Respiratory Exam Respiratory: Present CTA bilaterally, normal respiratory effort, able to speak in complete sentences and symmetric chest movement; Absent accessory muscle use, decreased breath sounds, rales, respiratory distress, wheezes, distant breath sounds or diminished air movement *Routine Cardiovascular Exam Cardiovascular: Present RRR, Normal S1 and Normal S2; Absent murmur or gallop *Routine Abdominal Exam Abdominal: Present soft and normoactive bowel sounds; Absent tenderness, distended, rebound or guarding *Routine Rectal Exam Rectal:: deferred *Routine Genitalia Exam Genitalia:: normal female *Routine Extremities Exam Extremities: Absent cyanosis, clubbing or edema *Routine Skin Exam Skin: Present warm; Absent rash *Routine Neurological Exam Neurological: Present alert and oriented X3 Assessment and Plan *Assessment and plan (1) History of pre-eclampsia in prior , currently : Status: Acute Category: Medical Code(s): O09.299 - Supervision of with other poor reproductive or obstetric history, unspecified trimester (2) Hx of section: Problem Comment: x3 Status: Acute Category: Surgical Code(s): Z98.891 - History of uterine scar from previous surgery (3) Advanced maternal age (AMA) in : Problem Comment: 36 weeks and 5 days gestation -NST is reactive -Continue following PIH labs -All PIH labs remain reassuring -GBS is negative -All testing has remained reassuring -Continue antihypertensive drugs of nifedipine XR 60 mg once daily and labetalol 300 mg 3 times daily -Received her second dose of betamethasone tonight at 1848 -Follow-up tomorrow for an NST in labor and delivery -Follow-up on Sunday for BPP in radiology -Follow-up on Sunday for repeat delivery Strict return precautions were discussed with the patient and her family member that was in the room at bedside. Discussed returning for contractions, leakage of fluid, decreased movement, headache, vision changes, right upper quadrant pain, elevated blood pressures especially 160/110. Patient voiced understanding. Patient has a blood pressure cuff at home and is very reliable checking her blood pressure multiple times a day. Status: Acute Category: Medical (4) Obesity: Status: Acute Qualifiers: Obesity type: due to excess calories Obesity classification: adult class 2 (BMI 35 - 39.9) Body mass index: BMI 38.0-38.9 Serious obesity comorbidity presence: with serious comorbidity Qualified Code(s): E66.01 - Morbid (severe) obesity due to excess calories; Z68.38 - Body mass index [BMI] 38.0-38.9, adult Category: Medical Code(s): E66.9 - Obesity, unspecified (5) : Status: Acute Qualifiers: Weeks of gestation: 37 weeks Qualified Code(s): Z3A.37 - 37 weeks gestation of Category: Medical Code(s): Z34.90 - Encounter for supervision of normal , unspecified, unspecified trimester (6) Preeclampsia: Status: Acute Qualifiers: Trimester: third trimester Qualified Code(s): O14.93 - Unspecified pre- eclampsia, third trimester Category: Medical Code(s): O14.90 - Unspecified pre-eclampsia, unspecified trimester (7) Admission for sterilization: Status: Acute Category: Medical Code(s): Z30.2 - Encounter for sterilization (8) delivery, delivered, current hospitalization: Status: Acute Category: Medical Code(s): O82 - Encounter for delivery without indication Plan - Monitor vitals - Admit to L&D for scheduled repeat delivery - GBS neg/ Blood type: A+ - Hemoglobin: 11.8, Plt: 227 - Plan for spinal anesthesia - Anticipate delivery of female infant: Kelly #Preeclampsia -Blood pressure on arrival well-controlled -Continue home medication of nifedipine XR 60 mg once daily and labetalol 200 mg 3 times daily -Continue monitoring mild transaminitis (AST). All other values are appropriate within normal limits
[2023-05-16] MEDS: OXYTOCIN/RINGERS LACTATE 30 UNITS/500 ML BAG 40 UNITS IV (09:52)
--- NOTE | 2023-05-16 09:53 | EXP.OP.NOTE ---
Date of procedure: 05/16/23 Pre-op Diagnosis:: 1. 37 weeks and 2 days gestation, [place] 2. Preeclampsia 3. History of delivery x 3 4. Desires sterilization 5. Advanced maternal age 6. Obesity 7. GBS negative 8. Rh+ Post-op Diagnosis:: 1. 37 weeks and 2 days gestation, [place] 2. Preeclampsia 3. History of delivery x 3 4. Desires sterilization 5. Advanced maternal age 6. Obesity 7. GBS negative 8. Rh+ Procedure performed:: Repeat Delivery with bilateral salpingectomy Surgeon:: Mattie Elizalde DO Automotive Parts Coordinator(s):: Casi Aquino DO HORTICULTURAL NURSERY ASSISTANT:: Nic Longoria Anesthesia: spinal Estimated blood loss (mL): 300 Operative findings:: 1. Live viable female infant: Kelly. Weight: 6pounds 13ounces. Apgars 8 and 9 at 1 and 5 minutes respectively 2. Normal-appearing fallopian tubes and ovaries bilaterally Operative note:: Medications: 2 g of Ancef EBL: 300mL Procedure: Repeat delivery with bilateral salpingectomy Summary: Ramila Henao is a 38-year-old -0-5-3 who presented to labor and delivery at 37 weeks and 2 days gestation for a scheduled repeat delivery and bilateral salpingectomy. Procedure explained in its entirety. The patient was counseled on the risks and benefits of section including bleeding, vascular injury, infection, and injury to the surrounding structures. Hemorrhage requiring life saving blood transfusion resulting in blood born viral infection or allergic reaction was explained and the patient consented to blood transfusion. Possible need for further operative measures prolonging recovery time and hospitalization reviewed to include hysterectomy. Procedure explained in its entirety and patient had no further questions. Consented to procedure. The patient was taken back to the operating room where adequate spinal anesthesia was obtained. Pneumatic compression stockings applied to lower extremities. Ancef 2g was given for infection prophylaxis. She was placed in the dorsal supine position Urinary catheter was placed and found to be draining clear urine. The patient was prepped and draped in sterile fashion. Anesthesia was tested and and found to be adequate. A Pfannenstiel skin incision was made with the scalpel. Subcutaneous bleeding vessels were cauterized with the bovie. The incision was taken down to the fascia with the bovie. The fascia was knicked in the midline and sharply extended laterally. The superior aspect of the fascia was grasped with Néstor clamps and the rectus muscle was taken down with the Bovie. The rectus muscle was sharply dissected from the midline with May[place]. This process was repeated inferiorly. The rectus muscles were in the midline, peritoneum was identified and entered bluntly. Given bladder scarring a bladder flap was made with Metzenbaum scissors and rations. Apolinar O retractor was placed and the bladder was noted to be out of the operative field. The lower uterine segment was easily identified, sharply incised, and entered bluntly with the surgeon's index finger. Incision was then extended in a superior and inferior fashion by blunt separation. Membranes were ruptured revealing clear fluid. The fetus was in cephalic presentation. The head was carefully elevated out of the pelvis. Fundal pressure was applied when head was brought into incision. The infants head was delivered without difficulty. The shoulder and body followed without complication. The mouth and nose were suctioned with a bulb. The umbilical cord was clamped and cut after 1 minute. Infant was vigorous and crying immediately following delivery. The was taken to warmer for evaluation by the regional wildlife agent. Cord blood was collected for routine evaluation. The placenta was delivered with fundal massage and IV Pitocin was initiated. Inside of the uterus was gently cleared of blood and clots with lap sponge. The hysterotomy was closed with 0 Vicryl in a running locked fashion. A small [id number] stitch was placed in the midline of the hysterotomy to make it hemostatic. The lower uterine segment was visualized and noted to be hemostatic. The ovaries and tubes were found to be normal. The posterior aspect of the uterus was cleared of blood clot with a damp lap sponge. The right fallopian tube was exposed, bowel was packed away with moist lap sponge. The fallopian tube was grasped at the fimbriated end with a [place] and the Enseal was used to clamp, coagulate, and transect the fallopian tube serially until getting approximately 2 cm from the cornua where it was not able to be exposed adequately. Fallopian tube was transected and passed off the operative field to be sent to pathology for further evaluation. This process was repeated on the contralateral side. Fallopian tubes were sent together. Hemostasis was noted. The gutters were inspected bilaterally and cleared of blood and clots with lap sponges. The uterine incision was reinspected and there was some mild oozing noted. Nu-Kalit was placed across the hysterotomy for added hemostasis. Apolinar O retractor was removed. The peritoneum was reapproximated using a 2-0 Monocryl in a nonlocked running fashion. The fascia was closed in a running nonlocked fashion using 0 Vicryl x2 meeting right of midline. Fascia was noted as not having gaps or defects. The subcutaneous fat was closed in a 2 layer fashion with a running 2-0 Vicryl followed by a running 0 Monocryl. Skin was closed with the INSORB suture in a subcuticular fashion. Patient tolerated the procedure well and all counts were correct x3, per nursing. Patient will receive tap blocks by anesthesia and be taken to the OB PACU. Condition: stable Disposition: PACU Specimens:: 1. Placenta secondary to preeclampsia 2. Bilateral fallopian tubes Complications:: None
--- NOTE | 2023-05-16 09:53 | EXP.ANES.CKL ---
[facility] Disclaimer: The information contained in this section may have been updated after the patient was seen, as this information can be updated by other users. Medical History History of pre-eclampsia in prior , currently Abnormal electrocardiogram [ECG] [EKG] Gestational hypertension affecting fourth Vitamin D deficiency Hyperlipemia PCOS (polycystic ovarian syndrome) Surgical History History of placement of ear tubes Hx of cholecystectomy History of loop electrical excision procedure (LEEP) Hx of section x3 History of tonsillectomy and adenoidectomy Family History Other Diabetes Social History (Updated 05/16/23 @ 06:25 by Merna Davis RN) Smoking Status: Never smoker alcohol intake: never counseling provided: none substance use type: denies use current occupational status: employed Travel in the last 8 weeks: None do you feel safe at home: Yes victim of physical abuse: No victim of emotional abuse: No victim of sexual abuse: No [facility] [place] Anesthesia Checklist Patient Identification Patient Identification: Verbal (Name & ) Structural Data Admitted From: Inpatient Planned Operative Procedure/s: c/section Consent for Planned Operative Procedure(s) Verified: Yes NPO Status Verified Time NPO: 00:00 Airway Assessment Mallampati Score:: Class II C-Spine Mobility Assessed: Yes TMJ Mobility Assessed: Yes Dentition: Good Dentition Neurological Assessment Level of Consciousness: Awake, Alert and Appropriate Anesthesia Plan Anesthesia Risk discussed: Yes Anesthesia Plan: Verified ASA Class: II Anesthesia Type: Spinal Preoperative Comments Pre-Operative Comments: tap block discussed pt agrees to proceed w block
[2023-05-16] MEDS: ACETAMINOPHEN 500MG TAB 1000 MG PO ×3 (10:31→21:37)
[2023-05-16] MEDS: HYDROMORPHONE 2MG/ML SYRINGE 1 MG IV (11:18)
[2023-05-16 13:14] LABS: Microscopic,Cath URINE MICROSCOPIC (MICROSCOPIC)
[2023-05-16 13:27] LABS: Appearance,Urine/Cath CLEAR (Clear); Bilirubin,Cath Negative (Negative); Blood, Urine/Cath Negative (Negative); Color,Urine/Cath YELLOW (Yellow); Glucose,Urine/Cath (UA) Negative (Negative); Ketones,Urine/Cath Negative (Negative); Leukocyte Esterase,Cath Negative (Negative); Nitrate,Cath Negative (Negative); PH,Urine/Cath 5.5 (5.0-8.5); Protein,Urine/Cath Negative (Negative); Urobilinogen,Cath 0.2 EU/dl (0.2)
[2023-05-16 14:43] LABS: Bacteria,Urine/Cath TRACE /lpf; WBC,Urine/Cath Occasional #/hpf (0-3)
[2023-05-16] MEDS: SIMETHICONE 80MG CHEWABLE TABLET 160 MG PO ×2 (15:53→21:37)
[2023-05-16] MEDS: KETOROLAC 30MG/ML VIAL 30 MG IV ×2 (15:54→21:37)
[2023-05-16] MEDS: LABETALOL 100MG TABLET 300 MG PO ×2 (15:54→21:38)
[2023-05-16] MEDS: OXYCODONE 5MG IMMEDIATE RELEASE TABLET 5 MG PO (20:16)
[2023-05-17] MEDS: OXYCODONE 5MG IMMEDIATE RELEASE TABLET 5 MG PO ×2 (00:11→13:40)
[2023-05-17] MEDS: SIMETHICONE 80MG CHEWABLE TABLET 160 MG PO (01:02)
[2023-05-17] MEDS: ACETAMINOPHEN 500MG TAB 1000 MG PO ×4 (03:10→21:22)
[2023-05-17] MEDS: KETOROLAC 30MG/ML VIAL 30 MG IV (03:10)
[2023-05-17 06:14] LABS: Alanine Aminotransferase 26 U/L (12-78); Albumin Level 2.4 g/dl (3.5-5.0); Alkaline Phosphatase 124 U/L (38-126); Anion Gap 5.7 mEq/L (5-15); Aspartate Amino Transferase 31 U/L (14-36); Bilirubin,Total 0.4 mg/dl (0.2-1.3); Blood Urea Nitrogen 15 mg/dl (7-17); Calcium 8.3 mg/dl (8.4-10.2); Carbon Dioxide 23 mmol/L (22.0-30.0); Chloride 107 mmol/L (98-107); Creatinine Clearance Estimated 188 mL/min (50-200); Estimated Glomerular Filt Rate 112 ml/min (>60); GFR (African American) 136 ML/MIN (>60); Globulin 2.4 g/dL (1.3-3.2); Glucose 136 mg/dl (74-100); Potassium 3.7 mmoL/L (3.5-5.1); Sodium 132 mmol/L (136-145); Total Protein,Serum 4.8 g/dl (6.3-8.2)
[2023-05-17 06:34] LABS: Basophils % 0.3 % (0.1-2.0); Eosinophils # 0.2 K/mm3 (0.0-0.4); Eosinophils % 1.2 % (0.1-12.0); Hematocrit 28.4 % (37.0-47.0); Hemoglobin 8.9 g/dL (12.2-16.2); Lymphocytes % 16.1 % (10-50); Mean Corpuscular HGB Conc 31.2 g/dL (31.8-35.4); Mean Corpuscular Hemoglobin 26.9 pg (27.0-31.2); Mean Corpuscular Volume 86.1 fl (81-99); Mean Platelet Volume 9.5 fl (7.4-10.4); Monocytes # 0.7 K/mm3 (0.1-1.0); Monocytes % 5.4 % (1.7-9.3); Neutrophils # 9.3 K/mm3 (1.8-7.8); Platelet Count 190 K/mm3 (142-424); Red Cell Distribution Width 15.6 % (11.5-17.5); White Blood Count 12.1 K/mm3 (4.8-10.8)
[2023-05-17 08:58] VITALS: BP 135/68; PULSE 79; RESP 18; TEMP 36.6; O2SAT 99
[2023-05-17] MEDS: NIFEdipine XL 30MG TABLET 60 MG PO (09:01)
[2023-05-17] MEDS: IBUPROFEN 400 MG TABLET 800 MG PO ×2 (09:02→17:58)
[2023-05-17] MEDS: METFORMIN 500MG TABLET 1000 MG PO ×2 (09:02→17:58)
[2023-05-17] MEDS: LABETALOL 100MG TABLET 300 MG PO (09:02)
[2023-05-17] MEDS: LORATADINE 10MG TABLET 10 MG PO (09:02)
--- NOTE | 2023-05-17 15:47 | EXP.PN ---
Subjective *Date: 05/17/23 *Time: 15:47 Interval history: Ramila is a 38-year-old -0-5-4 who is postoperative day #1 following a repeat low-transverse delivery and bilateral salpingectomy at 37 weeks and 2 days gestation secondary to gestational hypertension and preeclampsia. She has had a routine course. When I saw her this afternoon her 4 children and were in the room and they were all doing well. -She is ambulating, voiding, and tolerating p.o. without difficulty, dysuria, or nausea and vomiting. Her pain is very well-controlled. Her lochia is scant. When I saw her she was breast-feeding her female . Denies chest pain shortness of breath or pain in her legs. No further complaints at this time. Exam Data for Last 24 hours Vital signs and Labs for Last 24 Hours: Temp Pulse Resp BP Pulse Ox O2 Del Method 97.8 F 79 18 135/68 99 Room Air 05/17/23 08:58 05/17/23 08:58 05/17/23 08:58 05/17/23 08:58 05/17/23 08:58 05/17/23 08:58 Laboratory Results - last 24 hr 05/17/23 05:19: WBC 12.1 H, RBC 3.30 L D, Hgb 8.9 L, Hct 28.4 L, MCV 86.1, MCH 26.9 L, MCHC 31.2 L, RDW 15.6, Plt Count 190, MPV 9.5, Neut % (Auto) 77.0, Lymph % (Auto) 16.1, [place] % (Auto) 5.4, Eos % (Auto) 1.2, Baso % (Auto) 0.3, Neut # (Auto) 9.3 H, Lymph # (Auto) 2.0, [place] # (Auto) 0.7, Eos # (Auto) 0.2, Baso # (Auto) 0.0, Sodium 132 L, Potassium 3.7, Chloride 107, Carbon Dioxide 23, Anion Gap 5.7, BUN 15, Creatinine 0.60, Estimated Creat Clear 188, Estimated GFR 112, Est GFR ( Amer) 136, Glucose 136 H, Calcium 8.3 L, Total Bilirubin 0.4, AST 31 D, ALT 26 D, Alkaline Phosphatase 124, Total Protein 4.8 L, Albumin 2.4 L D, Globulin 2.4, Albumin/Globulin Ratio 1.0 L I & O for Last 24 hours: Intake & Output 05/14/23 05/15/23 05/16/23 05/17/23 23:59 23:59 23:59 23:59 Output Total 700 / 700 Balance -700 / -700 Weight 204 lb Narrative: General: patient is alert oriented in no acute distress and responds appropriately to questions. Appears to be in minimal pain. Sitting up in the chair and doing well HEENT: NCAT, EOMI, moist mucous membranes, neck supple with full ROM Cardiovascular: RRR +S1/S2, no murmurs or rubs Pulmonary: Clear to auscultation bilaterally, nonlabored breathing, symmetric chest rise Abdominal: Fundus below the umbilicus, firm, and tenderness appropriate for the period. Extremities: trace edema, no tenderness or cyanosis noted Skin: Normal turgor, intact, warm. Negative for erythema, pallor, petechia, or lesions Neurologic: Negative for sensory or motor deficit Psychiatric: Normal affect, normal thought process, good judgment and insight, no depression or anxious mood appreciated. Assessment and Plan *Assessment and plan (1) delivery, delivered, current hospitalization: Status: Acute Category: Medical Code(s): O82 - Encounter for delivery without indication (2) Admission for sterilization: Status: Acute Category: Medical Code(s): Z30.2 - Encounter for sterilization (3) Preeclampsia: Status: Acute Qualifiers: Trimester: third trimester Qualified Code(s): O14.93 - Unspecified pre-eclampsia, third trimester Category: Medical Code(s): O14.90 - Unspecified pre-eclampsia, unspecified trimester (4) Hypertension affecting in third trimester: Status: Acute Category: Medical Code(s): O16.3 - Unspecified maternal hypertension, third trimester (5) History of pre-eclampsia in prior , currently : Status: Acute Category: Medical Code(s): O09.299 - Supervision of with other poor reproductive or obstetric history, unspecified trimester (6) Hx of section: Problem Comment: x3 Status: Acute Category: Surgical Code(s): Z98.891 - History of uterine scar from previous surgery (7) Anemia: Status: Acute Category: Medical Code(s): D64.9 - Anemia, unspecified Plan Stable. POD#1 s/p repeat low-transverse delivery and BSG -Doing well. VSS. Serial lochia and fundal checks. -A+/antibody negative -, female infant. Weight 6 pounds 13 ounces at delivery -Contraception: BSG -Follow-up 2 weeks for routine visit -Dispo: home in 1-3 days pending mother/infant status #Anemia -Hemoglobin: 11.8--> 8.9 -Normocytic - asymptomatic anemia noted. Vitals stable. Continue monitoring. DC with Fe #Preeclampsia -Blood pressures have been well-controlled and even low during her course -She is currently taking nifedipine XR 60 mg once daily and labetalol 200 mg 3 times a day. This afternoon the patient's blood pressure was very low and it required us to hold her labetalol. -On postop day 1 we will decrease her labetalol down to 100 mg twice daily -Liver enzymes continue downtrending
[2023-05-17 16:52] VITALS: BP 119/59; PULSE 88; RESP 17; TEMP 36.7; O2SAT 98
[2023-05-17] MEDS: PRENATAL MULTIVITAMIN W/IRON 1 EACH PO (17:58)
[2023-05-17 21:20] VITALS: BP 99/56; PULSE 91; RESP 17; TEMP 36.8; O2SAT 96
[2023-05-18 03:55] VITALS: BP 141/79; PULSE 91; RESP 17; TEMP 36.8; O2SAT 98
[2023-05-18] MEDS: LANOLIN CREAM 40GM TP (07:31)
[2023-05-18] MEDS: ACETAMINOPHEN 500MG TAB 1000 MG PO (07:33)
[2023-05-18] MEDS: METFORMIN 500MG TABLET 1000 MG PO (07:34)
[2023-05-18] MEDS: IBUPROFEN 400 MG TABLET 800 MG PO (07:34)
--- NOTE | 2023-05-18 07:41 | EXP.DC.SUM ---
General Admission date:: 05/16/23 Discharge date: 05/18/23 HPI HPI HPI: Ramila Henao is a 38-year-old -0-5-3 who presented to labor and delivery at 37 weeks and 2 days gestation for a scheduled repeat delivery and bilateral salpingectomy. DALTON is 06/04/2023 based on last menstrual period confirmed by first trimester ultrasound. On admission her blood pressure has been well-controlled. She has had testing almost daily for the last week and has all been reassuring. This has been complicated by preeclampsia, advanced maternal age, obesity, and history of delivery. On arrival she denied headaches, vision changes or right upper quadrant pain. Ramila reports that she has good movement, denies contractions, leakage of fluid, or vaginal bleeding. A positive, antibody negative, hepatitis C negative, hepatitis B negative, HIV negative, RPR negative, and gonorrhea and Chlamydia negative, rubella immune 1 hour GTT: 184 3-hour GTT: 91/155/132/86. Pass GBS negative Hospital Course Hospital Course Hospital Course: Ramila is a 38-year-old -0-5-4 who is postoperative day #2 following a repeat low-transverse delivery and bilateral salpingectomy at 37 weeks and 2 days gestation secondary to gestational hypertension and preeclampsia. She has had a routine course. When I saw her this afternoon her 4 children and were in the room and they were all doing well. -She is ambulating, voiding, and tolerating p.o. without difficulty, dysuria, or nausea and vomiting. Her pain is very well-controlled. Her lochia is scant. She was breast-feeding her female infant. Denies chest pain shortness of breath or pain in her legs. No further complaints at this time. -Patient desires discharge home today. Routine discharge instructions reviewed with patient in detail and she voiced understanding. All questions and concerns were addressed Exam Data for Last 24 hours Vital signs and Labs for Last 24 Hours: Temp Pulse Resp BP Pulse Ox O2 Del Method 98.3 F 91 H 17 141/79 H 98 Room Air 05/18/23 03:55 05/18/23 03:55 05/18/23 03:55 05/18/23 03:55 05/18/23 03:55 05/18/23 03:55 I & O for Last 24 hours: Intake & Output 05/15/23 05/16/23 05/17/23 05/18/23 23:59 23:59 23:59 23:59 Output Total 700 / 700 Balance -700 / -700 Weight 204 lb Microbiology Reports for the Last 24 Hours: Microbiology 05/16/23 05:00 Urine,Clean Catch Urine Culture - Final Narrative: General: patient is alert oriented in no acute distress and responds appropriately to questions. Appears to be in minimal pain. Sitting up in the chair and doing well HEENT: NCAT, EOMI, moist mucous membranes, neck supple with full ROM Cardiovascular: RRR +S1/S2, no murmurs or rubs Pulmonary: Clear to auscultation bilaterally, nonlabored breathing, symmetric chest rise Abdominal: Fundus below the umbilicus, firm, and tenderness appropriate for the period. Extremities: trace edema, no tenderness or cyanosis noted Skin: Normal turgor, intact, warm. Negative for erythema, pallor, petechia, or lesions Neurologic: Negative for sensory or motor deficit Psychiatric: Normal affect, normal thought process, good judgment and insight, no depression or anxious mood appreciated. Constitutional Constitutional: no acute distress *Routine HEENT Exam Head: Present normocephalic Eye: Present EOMI and PERRL ENT: Present mucous membranes moist *Routine Neck Exam Neck: Present supple; Absent lymphadenopathy *Routine Respiratory Exam Respiratory: Present CTA bilaterally *Routine Cardiovascular Exam Cardiovascular: Present RRR *Routine Abdominal Exam Abdominal: Present soft and normoactive bowel sounds; Absent tenderness *Routine Extremities Exam Extremities: Absent cyanosis, clubbing or edema *Routine Skin Exam Skin: Present warm; Absent rash *Routine Neurological Exam Neurological: Present alert and oriented X3 DS: Diagnosis Discharge Diagnosis (1) delivery, delivered, current hospitalization: Status: Acute Code(s): O82 - Encounter for delivery without indication (2) Admission for sterilization: Status: Acute Code(s): Z30.2 - Encounter for sterilization (3) Preeclampsia: Status: Acute Code(s): O14.90 - Unspecified pre-eclampsia, unspecified trimester Qualifiers: Trimester: third trimester Qualified Code(s): O14.93 - Unspecified pre-eclampsia, third trimester (4) Hypertension affecting in third trimester: Status: Acute Code(s): O16.3 - Unspecified maternal hypertension, third trimester (5) History of pre-eclampsia in prior , currently : Status: Acute Code(s): O09.299 - Supervision of with other poor reproductive or obstetric history, unspecified trimester (6) Hx of section: Status: Acute Code(s): Z98.891 - History of uterine scar from previous surgery Problem details: x3 (7) Anemia: Status: Acute Code(s): D64.9 - Anemia, unspecified Problem details: Stable. POD#2 s/p repeat low-transverse delivery and BSG -Doing well. VSS. Serial lochia and fundal checks. -A+/antibody negative -, female infant. Weight 6 pounds 13 ounces at delivery -Contraception: BSG -Follow-up 2 weeks for routine visit -Dispo: home in 1-3 days pending mother/infant status #Anemia -Hemoglobin: 11.8--> 8.9 -Normocytic - asymptomatic anemia noted. Vitals stable. Continue monitoring. DC with Fe #Preeclampsia -Blood pressures have been well-controlled and even low during her course -She is currently taking nifedipine XR 60 mg once daily -On POD#1 decreased labetalol - new dose 100 mg 2 times a day. -Liver enzymes continue downtrending Meds Home Medications and Allergies Home Medications Medication Instructions Recorded Confirmed Type docosahexaenoic acid 200 mg 200 mg PO DAILY #30 caps 06/19/22 05/16/23 Rx capsule ( [facility]) [facility]1 ea 03/06/23 05/16/23 Rx (Blood Pressure Cuff) metformin 1,000 mg tablet 1,000 mg PO BIDWMEAL 03/29/23 05/16/23 History cetirizine 10 mg tablet 10 mg PO DAILY Allergy Symptoms 04/19/23 05/16/23 History nifedipine 60 mg tablet,extended 60 mg PO DAILY 05/16/23 05/16/23 History release 24 hr acetaminophen 500 mg tablet 500 mg PO Q6H PRN fever #30 tabs 05/18/23 Rx ferrous sulfate 325 mg (65 mg 325 mg PO DAILY #30 tabs 05/18/23 Rx iron) tablet,delayed release ibuprofen 800 mg tablet 800 mg PO Q8H PRN pain #60 tabs 03/29/24 Rx labetalol 200 mg tablet 200 mg PO BID #60 tabs 05/18/23 Rx oxycodone 5 mg tablet 5 mg PO Q8H PRN pain #20 tabs 05/18/23 Rx sennosides 8.6 mg tablet (Senna 8.6 mg PO BIDP PRN Constipation 05/18/23 Rx Lax) #60 tabs simethicone 125 mg tablet 125 mg PO DAILY PRN abdominal 05/18/23 Rx distention #60 tabs New Prescriptions to Start Prescriptions: acetaminophen Tonio,Mattie ferrous sulfate Tonio,Mattie ibuprofen Tonio,Mattie labetalol Tonio,Mattie oxycodone Mattie Elizalde sennosides [Senna Lax] Tonio,Mattie simethiconMattie Jolley Allergies Allergy/AdvReac Type Severity Reaction Status Date / Time morphine [MORPHINE] Allergy Mild ITCHING Verified 05/10/23 13:31 Discharge Plan Disposition Patient Disposition: Home, Self-Care Discharge Order Discharge Orders: Discharge Order (Routine); Ordered 05/18/23 Ordered By: Mattie Elizalde Follow up Plan Follow up with: Mattie Elizalde DO [Staff Physician] - 2 weeks Prescriptions/Medication Reconciliation: New sennosides [Senna Lax] 8.6 mg Tablet 8.6 mg PO BIDP PRN (Reason: Constipation) Qty: 60 2RF ibuprofen 800 mg tablet 800 mg PO Q8H PRN (Reason: pain) Qty: 60 2RF acetaminophen 500 mg tablet 500 mg PO Q6H PRN (Reason: fever) Qty: 30 3RF simethicone 125 mg tablet 125 mg PO DAILY PRN (Reason: abdominal distention) Qty: 60 2RF ferrous sulfate 325 mg (65 mg iron) tablet,delayed release (DR/EC) 325 mg PO DAILY Qty: 30 3RF oxycodone 5 mg tablet 5 mg PO Q8H PRN (Reason: pain) Qty: 20 0RF labetalol 200 mg tablet 200 mg PO BID Qty: 60 1RF Continued DHA 200 mg capsule 200 mg PO DAILY Qty: 30 6RF metformin 1,000 mg tablet 1,000 mg PO BIDWMEAL cetirizine 10 mg tablet 10 mg PO DAILY nifedipine 60 mg tablet extended release 24hr 60 mg PO DAILY Discontinued labetalol 200 mg tablet 300 mg PO TID 30 Days Qty: 135 5RF pyridoxine (vitamin B6) 25 mg tablet 25 mg PO TID Qty: 90 0RF aspirin 81 mg capsule 81 mg PO DAILY Unisom (doxylamine) 25 mg tablet 25 mg PO HSP PRN (Reason: nausea and vomiting) No Action (DME) Blood Pressure Cuff Misc See Rx Instructions .ROUTE .MEDSUPPLY Qty: 1 0RF Rx Instructions: As directed Problem Reconciliation Problems Reviewed?: Yes Patient Discharge Instructions ACTIVITY: Limited activity and No heavy lifting DIET: regular diet Additional Instructions: Congratulations on the delivery of your sweet baby girl. It is my privilege to be your doctor and I am so thankful I could be a part of your special day. Discharge: 1. Take 800 mg Ibuprofen every 8 hours as needed for pain. You can also take 500-1000 mg of Tylenol in between doses, every 6-8 hours. Use prescription pain medicine for pain you feel in between 8 hour interval. -No driving while taking narcotic pain medications. In order to drive you should be able to slam on the brakes without significant abdominal pain. 2. Wean from prescription pain medicine first. Do not drive while taking it. 3. Prescription pain medicine can make you constipated. Colace can be taken 1-2 times per day as you need. Make sure to drink at least 8 cups of water per day. 4. Iron supplements can make you constipated. Colace can be taken 1-2 times per day as you need. You can take iron tablets every other day if constipation is too bad. 5. Nothing in the vagina for 6 weeks - no sex, douching, tampons. No tub baths 6. Do not lift greater than 15 pounds for 6 weeks, this is the equivalent of 2 gallons of milk. 7. Reasons to return to L&D or call On-Call doctor - fever (greater than 100.4) - heavy vaginal bleeding (soaking through 1 pad in less than 2 hours or passing clots that are egg sized) - vaginal discharge (malodorous and/or purulent) - bleeding or discharge from her incision - severe headaches, leg tenderness/edema, or any other symptoms that warrant immediate medical attention. 8. depression/blues - Normal to feel anxious/overwhelmed for first 2 weeks - Talk to your doctor if: anxiety lasts over 2 weeks, trouble bonding with baby, withdrawing from other family members, thoughts of harming yourself or others Blood pressure and preeclampsia instructions 1. Please take your blood pressure twice daily. 2. Please call if greater than 2 values are higher than: 150 systolic (the top number) or 100 diastolic (the bottom number). 3. Please go to the emergency room or labor and delivery triage if any value is higher than: 160 systolic (the top number) or 110 diastolic (the bottom number). 4. Please call if unrelenting headache (does not go away with rest or Tylenol or ibuprofen), changes in vision (spots, floaters, flashes of light), chest pain, shortness of breath, or right upper quadrant (liver) abdominal pain. Mattie Elizalde DO [facility] [phone] *Nothing in the Vagina for 6 weeks* *No strenuous activity* *No heavy lifting* *No tub baths until okay's by MD* Patient Instructions: Depression, Hemorrhage, DI for , DI for Pre-eclampsia, [facility] Post Discharge Instructions Providers Primary Care Provider: Gustabo Castillo Admit Provider: Mattie Elizalde Attending Provider: Mattie Elizalde
--- NOTE | 2023-05-21 15:06 | SW/DCPLANNER ---
Infant cord screen is NEGATIVE.
== END 2023-05-18 09:55 | disposition home or self-care (01) | DRG 784 ==
PROVIDERS: Admitting Provider Obstetrics & Gynecology; PCP Internal Medicine Adolescent Medicine; Visit Provider Obstetrics & Gynecology
PROC: 10D00Z1 Extraction of Products of Conception, Low, Open Approach (ICD-10-PCS; CPT 59514; principal; 2023-05-16 07:30)
DX: O34.211 Maternal care for low transverse scar from previous cesarean delivery (principal); O14.93 Unspecified pre-eclampsia, third trimester; Z37.0 Single live birth; Z3A.37 37 weeks gestation of pregnancy; O99.214 Obesity complicating childbirth; N85.8 Other specified noninflammatory disorders of uterus; Z30.2 Encounter for sterilization
CPT/HCPCS: 59514; 58700; 36415; 59025; 76816; 76819; 80053; 80307; 81001; 82570; 84156; 84550; 85025; 86850; 87086; 88302; 88307; 94761; 96374; G0283; G0463

== ENCOUNTER 2023-08-02 08:44 | Outpatient (CLI) | payer OTHER, SELFPAY ==
--- NOTE | 2023-08-02 08:45 | US_ITS ---
FINAL REPORT TECHNIQUE: Ultrasound over scar. CLINICAL HISTORY: scar looking at her scar COMPARISON: None FINDINGS: ULTRASOUND SOFT TISSUES: Ultrasound examination was performed overlying the section scar. No evidence of focal mass or fluid collection is identified. No definite tear or rupture is seen in the scar. IMPRESSION: No evidence of focal mass or fluid collection, and no tear is seen in the section scar. Reviewed, Interpreted and Dictated by Jose Chand III, MD Transcribed by Germaine Gray Authenticated and [facility]
== END 2023-08-02 23:59 | disposition home or self-care (01) ==
LOC: RAD 08:45
PROVIDERS: PCP Internal Medicine Adolescent Medicine; Visit Provider Obstetrics & Gynecology
DX: Z98.891 History of uterine scar from previous surgery (principal); Z30.2 Encounter for sterilization
CPT/HCPCS: 76705